=== PATIENT | female | born 1960 | race Caucasian/White ===

== ENCOUNTER → 2016-11-28 | Outpatient (REF) | payer OTHER | LOC: M LAB REF 12:08 | PROVIDERS: ATTEND Nurse Practitioner Adult Health | DX: R19.09 Other intra-abdominal and pelvic swelling, mass and lump (principal); R93.2 Abnormal findings on diagnostic imaging of liver and biliary tract ==

== ENCOUNTER → 2016-12-06 | Outpatient (CLI) | payer OTHER ==
--- NOTE | 2016-12-06 15:04 | REP ---
MRCP examination without contrast: History: Mass of the pancreas. Heartburn. Nonspecific abnormal radiologic findings. No comparison abdominal imaging studies. Technique: Axial and coronal T2 HASTE and TRUE FISP images are acquired. In addition, an MRCP exam is acquired and maximum intensity projection images are generated and displayed rotational. Coronal source images are viewed. MRCP findings: There is a 1.0 cm cyst in the left lobe of the liver on T2-weighted scans. No other focal liver lesion is seen. No biliary ductal dilation is observed within the liver. The gallbladder lumen is homogeneous on T2-weighted scans with no filling defect. The common bile duct is normal in caliber and course. It measures 5 mm in greatest diameter. The main pancreatic duct is mildly dilated measuring up to 4 mm. No mass is seen at the distal duct or elsewhere on MRCP images. There is no evidence of mass effect or tapering at the confluence of the common bile duct and pancreatic duct at the level of the ampulla. Exam is otherwise unremarkable. Impression: Mild diffuse dilation of the pancreatic duct. Otherwise normal ERCP. Small cyst in the left lobe of the liver. Signed by Macho Gauthier MD 12/06/2016 04:26 P
--- NOTE | 2016-12-06 15:07 | REP ---
MRI STUDY OF THE ABDOMEN WITHOUT AND WITH IV GADOLINIUM: HISTORY: Pancreatic mass. No comparison abdominal imaging. TECHNIQUE: Axial and coronal imaging planes are utilized. T1 and T2-weighted sequences include TRUE FISP, in- and [id number]-pcpyj, spin echo, turbo spin echo, and sequential post gadolinium enhanced 2D fat sat T1-weighted gradient echo sequences. The gadolinium enhancement dose is 15 mL of intravenous ProHance. MRI FINDINGS: There is a well circumscribed low T1, high T2 signal intensity rounded 10 mm lesion in the left lobe of the liver consistent with a cyst . There is a second slightly smaller cyst more anteriorly and peripherally in the left lobe. No other focal liver lesion is seen. No splenic abnormalities observed. No adrenal masses seen on either side. The gallbladder is unremarkable. There is a tiny cortical cyst at the lower pole of the right kidney measuring 7 mm. There is mild fullness of the intrarenal collecting system and renal pelvis on the right consistent with mild right-sided hydronephrosis. Hydroureter is not seen beyond the level of the ureteropelvic junction. Dynamically acquired post gadolinium enhanced images show normal homogeneous enhancement of the pancreas without evidence of pancreatic mass lesion. No evidence of liver lesion is seen. The kidneys enhance symmetrically. IMPRESSION: No pancreatic mass lesion seen. Mildly prominent main pancreatic duct as seen on MRCP exam. Mild right-sided hydronephrosis question right ureteropelvic junction obstruction. Two small left lobe hepatic cysts seen. Signed by Macho Gauthier MD 12/06/2016 04:26 P
== END ==
LOC: M RAD 12:21
PROVIDERS: ATTEND Internal Medicine Gastroenterology
DX: R19.09 Other intra-abdominal and pelvic swelling, mass and lump (principal); R93.2 Abnormal findings on diagnostic imaging of liver and biliary tract; R12 Heartburn; N13.30 Unspecified hydronephrosis; K76.89 Other specified diseases of liver

== ENCOUNTER → 2017-06-28 | Outpatient (REF) | payer OTHER ==
[2017-06-28 20:48] LABS: BACTERIA, URINE NONE SEEN; HYALINE CAST, URINE 0-1 /lpf (0-1); SQUAMOUS EPITHELIAL CELL URINE MOD AMOUNT /hpf (SMALL AMT)
[2017-06-28 20:49] LABS: MICROSCOPIC EXAM PERFORMED
== END ==
LOC: M LAB REF 17:08
PROVIDERS: ATTEND Nurse Practitioner Adult Health
DX: R31.9 Hematuria, unspecified (principal)

== ENCOUNTER → 2019-08-05 | Outpatient (REF) | payer OTHER | LOC: M LAB REF 19:58 | PROVIDERS: ATTEND Nurse Practitioner Family | DX: N39.0 Urinary tract infection, site not specified (principal) ==

== ENCOUNTER → 2021-07-07 | Outpatient (REF) | payer OTHER | LOC: M LAB REF 16:45 | PROVIDERS: ATTEND Nurse Practitioner Adult Health | DX: L65.9 Nonscarring hair loss, unspecified (principal) ==

== ENCOUNTER → 2021-08-11 | Outpatient (CLI) | payer OTHER ==
[~2021-08-11] MED LIST: CELE1CAP9 PO; LISI10TA22 PO; MYRB50TA PO; OMEP10CA78 PO
== END ==
LOC: M LABSMTC 09:39
PROVIDERS: ATTEND Anesthesiology
DX: Z01.812 Encounter for preprocedural laboratory examination (principal); Z20.822 Contact with and (suspected) exposure to COVID-19

== ENCOUNTER 2021-08-16 09:16 | Day surgery (SDC) | payer OTHER ==
[~2021-08-16] VITALS: Ht 160 cm; Wt 83.6 kg
[~2021-08-16 09:16] MED LIST changes: +CYCLOPENTOLATE 1% OPHTH SOLN 2 ML BTL OS SCH; +DUOVISC (0.50ML VISCOAT/0.85ML PROVISC) OPHTH KIT As Ordered ONE; +FLURBIPROFEN 0.03% OPHTH SOLN 2.5 ML OS SCH; +LIDOCAINE 1% MDV 20ML VIAL SQ PRN; +LIDOCAINE 1% SDV 5ML VIAL As Ordered ONE; +LR 1,000 ML IV SCH; +MIDAZOLAM INJ 2MG/2ML VIAL (J2250 PER 1MG) As Ordered ONE; +PHENYLEPHRINE 2.5% OPHTH SOL 2ML OS SCH; +TETRACAINE 0.5% OPHTH SOLN 4ML OS SCH; +fentaNYL 100 MCG/2 ML INJECTION (J3010) As Ordered ONE
[2021-08-16 14:15] VITALS: BP 157/82
== END 2021-08-16 14:15 | disposition home or self-care (01) ==
LOC: M SDC 09:16
PROVIDERS: ATTEND Ophthalmology
DX: H25.12 Age-related nuclear cataract, left eye (principal); I10 Essential (primary) hypertension; K21.9 Gastro-esophageal reflux disease without esophagitis; Z79.899 Other long term (current) drug therapy
CPT/HCPCS: 66984; 92015; J2250; J3010

== ENCOUNTER → 2021-09-08 | Outpatient (CLI) | payer OTHER ==
[~2021-09-08] MED LIST changes: -CYCLOPENTOLATE 1% OPHTH SOLN 2 ML BTL OS SCH; -DUOVISC (0.50ML VISCOAT/0.85ML PROVISC) OPHTH KIT As Ordered ONE; -FLURBIPROFEN 0.03% OPHTH SOLN 2.5 ML OS SCH; -LIDOCAINE 1% MDV 20ML VIAL SQ PRN; -LIDOCAINE 1% SDV 5ML VIAL As Ordered ONE; -LR 1,000 ML IV SCH; -MIDAZOLAM INJ 2MG/2ML VIAL (J2250 PER 1MG) As Ordered ONE; -PHENYLEPHRINE 2.5% OPHTH SOL 2ML OS SCH; -TETRACAINE 0.5% OPHTH SOLN 4ML OS SCH; +ULTR5TAB PO; -fentaNYL 100 MCG/2 ML INJECTION (J3010) As Ordered ONE
== END ==
LOC: M LABSMTC 11:19
PROVIDERS: ATTEND Anesthesiology
DX: Z01.812 Encounter for preprocedural laboratory examination (principal); Z20.822 Contact with and (suspected) exposure to COVID-19

== ENCOUNTER 2021-09-13 07:00 | Day surgery (SDC) | payer OTHER ==
[~2021-09-13] VITALS: Ht 160 cm; Wt 84.7 kg
[~2021-09-13 07:00] MED LIST changes: +CYCLOPENTOLATE 1% OPHTH SOLN 2 ML BTL OD SCH; +DUOVISC (0.50ML VISCOAT/0.85ML PROVISC) OPHTH KIT As Ordered ONE; +FLURBIPROFEN 0.03% OPHTH SOLN 2.5 ML OD SCH; +LIDOCAINE 1% SDV 5ML VIAL As Ordered ONE; +LR 1,000 ML IV SCH; +PHENYLEPHRINE 2.5% OPHTH SOL 2ML OD SCH; +TETRACAINE 0.5% OPHTH SOLN 4ML OD SCH
--- OUTSIDE RECORDS SUMMARY | 2021-09-13 07:05 | CCD | Continuity of Care Document ---
Author Author Nurse Enid Ortiz Organization Unknown Address [address] [facility] [address] [place] [address] Phone [phone] Care Team Providers Care Fusing Line Inspector Name Role Phone Estrellita Atkins AUTM [phone] Juliano Burk AUTM [phone] Problems Description No Information Available Social History Type Date Description Comments Sex Unknown ETOH Use Drinks Alcoholic Beverages Occas ionally Tobacco Use Start: Unknown Patient has never smoked Allergies and adverse reactions Active Allergies Criticality Reaction | Severity Comments Date Sulfa Unable to assess criticality 02/06/2012 Medications Active Medications SIG Qnty Indications Ordering Provide r Date Lisinopril 20mg Tablets 1 by mouth every day 90tabs Ted Arnold DO 08/02/20 [address] 1 by mouth every other day 30caps CHERRIE Isaac 04/22/2019 Myrbetriq 50mg Tablets ER 24HR 1 by mouth every day Unknown Acetaminophen ER 650mg Tablets ER 1 by mouth every 8 hours as needed for pain Unknown Fluticasone Propionate 50mcg/Act Suspension 2 sprays each nostril daily Unknown Medications Administered in Office Medication SIG Qnty Indications Ordering Provider Date Immunization Adminstration,1 Vaccine/Tox oid Injection Terry Arnold MD 2020 Immunization Adminstration,1 Vaccine/Tox oid Injection OJ Obrien JR 05/2021 Immunization Adminstration,1 Vaccine/Tox oid Injection CHERRIE Isaac 019 Depo-Medrol Injection Injection CHERRIE Isaac 07/03/2012 Administration Of Flu Vaccine Inj ection Estrellita Jose Milly, CHERRIE 10/05/2005 Immunizations CPT Code Status Date Vaccine Lot # [id number] Given 08/23/2021 Influenza Vaccin e Quadrivalent Preser/Antibiotic Free Im Use [id number] 72501 Given 11/26/2020 Adacel- Tetanus Diphtheria P ertussis [id number] 76775 Given 11/25/2019 Influenza Vaccin e Quadrivalent Preser/Antibiotic Free Im Use 87738 Given 11/21/2018 Influenza Virus Vaccine, Quadrivalent ([id number]), Derived From Cell [id number] Q2037 Given 08/25/2014 Fluvirin Virus Vaccine 90217 21 24659 Given 06/26/2013 PPD [id number] 42657 Given 02/06/2012 Zoster Vaccine 82399 Given 08/28/2009 Influenza Virus Vaccine 39752 Given 10/05/2005 Influenza Virus Vaccine Vital Signs Date Vital Result Comment 08/11/2021 1:10pm Heart Rate 88 /min Height 63 inches 5'3" Weight 185.00 lb O2 % BldC Oximetry 96 % BMI (Body Mass Index) 32.8 kg/m2 08/02/2021 9:13am BP Systolic 142 mmHg BP Diastolic 90 mmHg Heart Rate 72 /min Height 63 inches 5'3" Weight 184.00 lb BMI (Body Mass Index) 32.6 kg/m2 Results Test Acquired Date Facility Test Result H/L Range Note Laboratory test finding 08/11/2021 [facility] SEE COMMENTS 1 Enhanced PDF Report [id number] SEE IMAGE Basic Metabolic Panel 08/11/2021 [facility], colette Catal[employer] Operator Gasoline: [place] [address] [phone] Glucose 110 mg/dL High 74 - 99 2 BUN 15 mg/dL 7 - 18 Creatinine 1.0 mg/dL 0.6 - 1.3 Sodium 143 mEq/L 136 - 145 Potassium 4.1 mEq/L 3.5 - 5.1 Chloride 108 mEq/L High 98 - 107 Carbon Dioxide 31 mEq/L 21 - 32 Calcium 9.2 mg/dL 8.5 - 10.1 GFR 57 mL/min Low >60 GFR >= 60 mL/min >60 3 Laboratory test finding 07/07/2021 [facility] [address] [place], [place] [address] [phone] Free T3 3.4 pg/mL Normal 2.2-4.0 Complete Blood Count 07/07/2021 [place] [facility] [employer] [facility] Catal[employer] Operator Gasoline: [place] [address] [phone] WBC 5.2 x10*3/UL 4.1 - 10.9 RBC 4.62 x10*6/UL 4.20 - 6.30 Hemoglobin 14.4 g/dL 12.0 - 18.0 Hematocrit 42.5 % 37.0 - 51.0 MCV 91.9 fL 80.0 - 97.0 MCH 31.2 pg 26.0 - 32.0 MCHC 33.9 g/dL 31.0 - 38.0 RDW 12.8 % 11.6 - 13.7 PLT 203 x10*3/UL 140 - 440 MPV 8.2 FL 7.8 - 11.0 Lymph % 33.7 % 10.0 - 58.5 Mid % 7.2 % 1.7 - 9.3 Neut % 59.1 % 37.0 - 92.0 Lymph # 1.7 x10*3/UL 0.6 - 4.1 Mid # 0.4 x10*3/UL 0.1 - 0.6 Neut # 3.1 x10*3/UL 2.0 - 7.8 Comprehensive Chem Profile 07/07/2021 [place] colette Garsia Catal[employer] Operator Gasoline: [place] [address] [phone] Glucose 91 mg/dL 74 - 99 4 BUN 17 mg/dL 7 - 18 Creatinine 0.9 mg/dL 0.6 - 1.3 Sodium 139 mEq/L 136 - 145 Potassium 4.3 mEq/L 3.5 - 5.1 Chloride 104 mEq/L 98 - 107 Carbon Dioxide 31 mEq/L 21 - 32 Calcium 9.2 mg/dL 8.5 - 10.1 Alk. Phosphatase 64 mg/dL 46 - 116 Total Bilirubin 0.3 mg/dL 0.2 - 1.0 Ast (Sgot) 24 U/L 15 - 37 Alt (SGPT) 36 U/L 12 - 78 Albumin 4.1 g/dL 3.4 - 5.0 Total Protein 7.3 g/dL 6.4 - 8.2 A/G Ratio 1.28 CALC 1.00 - 1.90 GFR >= 60 mL/min >60 GFR >= 60 mL/min >60 5 Lipid Profile 07/07/2021 [facility] Catal[employer] Operator Gasoline: [place] [address] [phone] Cholesterol 197 mg/dL 131 - 200 Triglycerides 55 mg/dL 30 - 150 HDL Cholesterol 65 mg/dL High 35 - 60 LDL (Calculated) 121 CALC 50 - 159 Laboratory test finding 07/07/2021 [place] [facility], Catal[employer] Operator Gasoline: Dr Terry Arnold [place] [id number] [phone] Thyroid Stimulating Hormone 1.58 uIU/mL 0.3 6 - 3.74 Laboratory test finding 07/07/2021 [place] [facility], Catalyst Operator Gasoline: Dr Terry Arnold [place] [id number] [phone] T4 Free 0.84 ng/dL 0.76 - 1.46 Laboratory test finding 03/12/2021 [place] [facility], Catalyst Operator Gasoline: Dr Terry Arnold [place], [place] [address] [phone] Thyroid Stimulating Hormone 1.26 uIU/mL 0.3 6 - 3.74 1 RESULTS DIAGNOSIS DIAGNOSIS: LEFT ANTERIOR LEG- PRURIGO NODULARIS RESULTS SIGNATURE Carlito Le MD Electronic Signature: 17 AUG 2021 01:19 PM CLINICAL INFORMATION CLINICAL INFORMATION DERMATOFIBROMA SPECIMEN DATA GROSS DESCRIPTION Received in 10% buffered formalin is an excision of skin measuring 24G5K8am. There is a central lesion of a papule measuring 6X6mm in width. The specimen is inked, cut into 9 pieces and entirely submitted in 5 colby sette(s). MICROSCOPIC DESCRIPTION There is compact hyperkeratosis, irregular psoriasiform epidermal hyperplasia and a thickened papillary dermis composed of coarse collagen. A mixed inflammatory cell infiltrate composed of lymphocytes and histiocytes are present around blood vessels in the superficial dermis. CPT Codes 76264 The CPT codes provided are for information purposes only, and are based on AMA guidelines without regard to specific payor requirements. END OF REPORT FINAL REPORT-ACC FINAL [facility],[address] [place] [address],[address],[place] [address]. [phone]. [phone]. Household Personal Assistant: Kory Sarmiento MD [facility] [id number], [place] [id number], [place] [id number] 2 100-125 mg/dL PRE-DIABET ES/FASTING >126 mg/dL DIABETES/FASTING 3 CHRONIC KIDNEY DISEASE STAGI NG PER NKF STAGE I & II GFR >= 60 NORMAL TO MILDLY DECREASED STAGE III GFR 30-59 MODERATELY DECREASED STAGE IV GFR 15-29 SEVERELY DECREASED STAGE V GFR <15 VERY LITTLE GFR LEFT ESRD GFR <15 ON PLANNING ADVISOR 4 100-125 mg/dL PRE-DIABET ES/FASTING >126 mg/dL DIABETES/FASTING 5 CHRONIC KIDNEY DISEASE STAGI NG PER NKF STAGE I & II GFR >= 60 NORMAL TO MILDLY DECREASED STAGE III GFR 30-59 MODERATELY DECREASED STAGE IV GFR 15-29 SEVERELY DECREASED STAGE V GFR <15 VERY LITTLE GFR LEFT ESRD GFR <15 ON PLANNING ADVISOR Procedures Date Code Description Status 08/11/2021 00585 EX Benign Les (3.1cm - 4.0cm) Tr unk, Arms, Legs Completed 08/11/2021 66376 Office/Outpatient Established SF MDM 10-19 Min Completed 07/07/2021 54299 Office/Outpatient Established Mo d MDM 30-39 Min Completed 03/12/2021 26881 Office/Outpatient Established Lo w MDM 20-29 Min Completed 11/10/2020 [id number] Mammogram Completed 11/06/2019 [id number] Mammogram Completed 11/05/2018 [id number] Mammogram Completed 11/02/2017 [id number] Mammogram Completed 09/10/2016 [id number] Mammogram Completed 09/07/2015 [id number] Mammogram Completed 09/05/2014 [id number] Mammogram Completed 08/14/2013 [id number] Colonoscopy Completed 07/25/2013 [id number] Mammogram Completed 07/24/2012 [id number] Mammogram Completed 07/20/2012 [id number] Mammogram Completed 07/20/2011 [id number] Mammogram Completed 07/19/2010 [id number] Mammogram Completed 06/02/2003 [id number] Bone Mineral Density Test Comple 500Shops Description No Information Available Encounters Type Date Location Provider Dx Diagnosis Office Visit 08/11/2021 1[facility]p [facility] D48.5 Neoplasm of uncertain behavior of skin I10 Essential (primary) hyperten kenton Office Visit 07/07/2021 9:20a [facility] 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 I10 Essential (primary) hyperten kenton K21.9 Gastro-esophageal reflux dis ease without esophagitis R32 Unspecified urinary incontin ence E78.5 Hyperlipidemia, unspecified Office Visit 03/12/2021 1:00p [facility], CHERRIE 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 I10 Essential (primary) hyperten kenton K21.9 Gastro-esophageal reflux dis ease without esophagitis Assessments Date Code Description Provider 08/23/2021 Z23 Encounter for immunization Colli alicja Arnold MD 08/23/2021 Z23 Encounter for immunization Nurse Schedule 08/23/2021 Z48.02 Encounter for removal of sutures Nurse Schedule 08/11/2021 D48.5 Neoplasm of uncertain behavior o f skin Estrellita Atkins, CHERRIE 08/11/2021 I10 Essential (primary) hypertension Estrellita Atkins, ANP 08/02/2021 Z01.810 Encounter for preprocedural card iovascular examination Ted Arnold, DO 08/02/2021 H26.9 Unspecified cataract Ted Arnold, DO 08/02/2021 I10 Essential (primary) hypertension Ted Arnold, DO 07/07/2021 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 Estrellita patel, ANP 07/07/2021 I10 Essential (primary) hypertension Estrellita Atkins, ANP 07/07/2021 K21.9 Gastro-esophageal reflux disease without esophagitis Estrellita Atkins, ANP 07/07/2021 R32 Unspecified urinary incontinence Estrellita Atkins, ANP 07/07/2021 E78.5 Hyperlipidemia, unspecified Marissac robbie Atkins, ANP 03/12/2021 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 08/11/2021 - CHERRIE Isaac* D48.5 Neoplasm of uncertain behavior of skin * I10 Essential (primary) hypertension Functional Status Description No Information Available Mental Status Description No Information Available Referrals Refer to Reason for Referral Status Appt Date [facility] CONSULT FOR MEDICAL NUTRITION THER APY DX: OBESITY Patient Notified 04/05/2021 [address] [place] [address] [phone]
--- OUTSIDE RECORDS SUMMARY | 2021-09-13 07:05 | CCD | Continuity of Care Document ---
Author Author Enid Atkins Organization Unknown Address [address] [facility] [address] [place] [address] Phone [phone] Care Team Providers Care Judo Instructor Name Role Phone Estrellita Atkins AUTM [phone] Juliano Burk AUTM [phone] Problems Description No Information Available Social History Type Date Description Comments Sex Unknown ETOH Use Drinks Alcoholic Beverages Occas ionally Tobacco Use Start: Unknown Patient has never smoked Allergies, Adverse Reactions, Alerts Active Allergies Criticality Reaction | Severity Comments [...] Provider Date Immunization Adminstration,1 Vaccine/Tox oid Injection OJ Obrien JR 05/2021 Immunization Adminstration,1 Vaccine/Tox oid Injection CHERRIE Isaac 019 Depo-Medrol Injection Injection CHERRIE Isaac 07/03/2012 Administration Of Flu Vaccine Inj ection CHERRIE Isaac 10/05/2005 Immunizations CPT Code Status Date Vaccine Lot # [id number] Given 11/26/2020 Adacel- Tetanus Diphtheria P ertussis [id number] 17091 Given 11/25/2019 Influenza Vaccin e Quadrivalent Preser/Antibiotic Free Im Use 28495 Given 11/21/2018 Influenza Virus Vaccine, Quadrivalent ([id number]), Derived From Cell [id number] Q2037 Given 08/25/2014 Fluvirin Virus Vaccine 23475 21 48934 Given 06/26/2013 PPD [id number] 58539 Given 02/06/2012 Zoster Vaccine 23331 Given 08/28/2009 Influenza Virus Vaccine 97255 Given 10/05/2005 Influenza Virus Vaccine Vital Signs [...] Range Note Laboratory test finding 08/11/2021 [facility] <pending> Basic Metabolic Panel 08/11/2021 [facility] colette cheng Cook [place]: [place] [address] [phone] Glucose 110 mg/dL High 74 - 99 1 BUN 15 mg/dL 7 - 18 Creatinine 1.0 mg/dL 0.6 - 1.3 Sodium 143 mEq/L 136 - 145 Potassium 4.1 mEq/L 3.5 - 5.1 Chloride 108 mEq/L High 98 - 107 Carbon Dioxide 31 mEq/L 21 - 32 Calcium 9.2 mg/dL 8.5 - 10.1 GFR 57 mL/min Low >60 GFR >= 60 mL/min >60 2 Laboratory test finding 07/07/2021 [facility] [address] [place] [address] [phone] Free T3 3.4 pg/mL Normal 2.2-4.0 Complete Blood Count 07/07/2021 [place] [facility] [employer] [facility] Cook [place]onnaise: [place] [address] [phone] WBC 5.2 x10*3/UL 4.1 - 10.9 RBC [...] 2.0 - 7.8 Comprehensive Chem Profile 07/07/2021 [place] colette Garsia Cook [place]onnaise: [place] [address] [phone] Glucose 91 mg/dL 74 - 99 3 BUN 17 mg/dL 7 - 18 Creatinine [...] mL/min >60 GFR >= 60 mL/min >60 4 Lipid Profile 07/07/2021 [facility] Cook [place]: Dr Terry Arnold [place] [address] [phone] Cholesterol 197 mg/dL 131 - 200 Triglycerides 55 mg/dL 30 - 150 HDL Cholesterol 65 mg/dL High 35 - 60 LDL (Calculated) 121 CALC 50 - 159 Laboratory test finding 07/07/2021 [place] [employer] is, Cook [place]: Dr Terry Arnold [place], [facility] [phone] Thyroid Stimulating Hormone 1.58 uIU/mL 0.3 6 - 3.74 Laboratory test finding 07/07/2021 [place] [employer] Mixer is, Cook [place]: Dr Terry Arnold [place] [id number] [phone] T4 Free 0.84 ng/dL 0.76 - 1.46 Laboratory test finding 03/12/2021 [place] Compound Mixer is, Cook [place]: Dr Terry Arnold [place] [address] [phone] Thyroid Stimulating Hormone 1.26 uIU/mL 0.3 6 - 3.74 Liver Function Profile 02/17/2021 [facility] Cook [place]: Dr Terry Arnold [place] [id number] [phone] Alk. Phosphatase 65 mg/dL 46 - 116 Total Bilirubin 0.4 mg/dL 0.2 - 1.0 Ast (Sgot) 25 U/L 15 - 37 Alt (SGPT) 39 U/L 12 - 78 Albumin 4.4 g/dL 3.4 - 5.0 Total Protein 7.8 g/dL 6.4 - 8.2 Direct Bilirubin 0.1 mg/dL 0.0 - 0.2 A/G Ratio 1.29 CALC 1.00 - 1.90 1 100-125 mg/dL PRE-DIABET ES/FASTING >126 mg/dL DIABETES/FASTING 2 CHRONIC KIDNEY DISEASE STAGI NG PER NKF STAGE I & II GFR >= 60 NORMAL TO MILDLY DECREASED STAGE III GFR 30-59 MODERATELY DECREASED STAGE IV GFR 15-29 SEVERELY DECREASED STAGE V GFR <15 VERY LITTLE GFR LEFT ESRD GFR <15 ON RECREATION ASSISTANT 3 100-125 mg/dL PRE-DIABET ES/FASTING >126 mg/dL DIABETES/FASTING 4 CHRONIC KIDNEY DISEASE STAGI NG PER NKF STAGE I & II GFR >= 60 NORMAL TO MILDLY DECREASED STAGE III GFR 30-59 MODERATELY DECREASED STAGE IV GFR 15-29 SEVERELY DECREASED STAGE V GFR <15 VERY LITTLE GFR LEFT ESRD GFR <15 ON RECREATION ASSISTANT Procedures Date Code Description Status 08/11/2021 15532 EX Benign Les (3.1cm - 4.0cm) Tr unk, Arms, Legs Completed 08/11/2021 91829 Office/Outpatient Established SF MDM 10-19 Min Completed 07/07/2021 28731 Office/Outpatient Established Mo d MDM 30-39 Min Completed 03/12/2021 71047 Office/Outpatient Established Lo w MDM 20-29 Min Completed 11/10/2020 [id number] Mammogram Completed 11/06/2019 [id number] Mammogram Completed 11/05/2018 [id number] Mammogram Completed 11/02/2017 [id number] Mammogram Completed 09/10/2016 [id number] Mammogram Completed 09/07/2015 [id number] Mammogram Completed 09/05/2014 [id number] Mammogram Completed 08/14/2013 [id number] Colonoscopy Completed 07/25/2013 [id number] Mammogram Completed 07/24/2012 [id number] Mammogram Completed 07/20/2012 [id number] Mammogram Completed 07/20/2011 [id number] Mammogram Completed 07/19/2010 [id number] Mammogram Completed 06/02/2003 [id number] Bone Mineral Density Test Comple [employer] Description No Information Available Encounters Type Date Location Provider Dx Diagnosis Office Visit 08/11/2021 1:20p [facility] PThanh Atkins, ANP D48.5 Neoplasm of uncertain behavior of skin I10 Essential (primary) hyperten kenton Office Visit 07/07/2021 9:[facility], AN[facility] 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 I10 Essential (primary) hyperten kenton K21.9 Gastro-esophageal reflux dis ease without esophagitis R32 Unspecified urinary incontin ence E78.5 Hyperlipidemia, unspecified Office Visit 03/12/2021 1:00p [place] [facility] hutson, ANP 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 I10 Essential (primary) hyperten kenton K21.9 Gastro-esophageal reflux dis ease without esophagitis Assessments Date Code Description Provider 08/11/2021 D48.5 Neoplasm of uncertain behavior o f skin Estrellita Atkins, ANP 08/11/2021 I10 Essential (primary) hypertension Estrellita Atkins, [...] Estrellita Atkins, ANP 07/07/2021 E78.5 Hyperlipidemia, unspecified Jonny Atkins, ANP 03/12/2021 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 Estrellita patel, ANP 03/12/2021 I10 Essential (primary) hypertension Estrellita Atkins, ANP 03/12/2021 K21.9 Gastro-esophageal reflux disease without esophagitis Estrellita Atkins, ANP 02/17/2021 K76.0 Fatty (change of) liver, not els ewhere classified Estrellita Atkins, CHERRIE 02/17/2021 K76.0 Fatty (change of) liver, not els ewhere classified Lab Schedule Plan of Treatment Future Appointment(s):* 08/23/2021 1:30 pm - Nurse Schedule at [facility] * 01/11/2022 10:40 am - CHERRIE Isaac at [facility] 08/11/2021 - CHERRIE Isaac* D48.5 Neoplasm of uncertain behavior of skin * I10 Essential (primary) hypertension Functional Status Description No Information Available Mental Status Description No Information Available Referrals Refer to Reason for Referral Status Appt Date [facility] CONSULT FOR MEDICAL NUTRITION THER APY DX: OBESITY Patient Notified 04/05/[address] [place] [address] [phone]
--- OUTSIDE RECORDS SUMMARY | 2021-09-13 07:05 | CCD | Continuity of Care Document ---
Author Author Enid Atkins Organization Unknown Address [address] [facility] [address] [place] [address] Phone [phone] Care Team Providers Care Joinery Machinist Name Role Phone Estrellita Atkins AUTM [phone] Juliano Burk AUTM [phone] Problems Description No Information Available Social History [...] CPT Code Status Date Vaccine Lot # [id number] Given 11/26/2020 Adacel- Tetanus Diphtheria P ertussis [id number] 82153 Given 11/25/2019 Influenza Vaccin e Quadrivalent Preser/Antib[place] Use [address] Given 11/21/2018 Influenza Virus Vaccine, Quadrivalent ([id number]), Derived From Cell [id number] Q2037 Given 08/25/2014 Fluvirin Virus Vaccine 47346 21 88586 Given 06/26/2013 PPD [id number] 54928 Given 02/06/2012 Zoster Vaccine 87949 Given 08/28/2009 Influenza Virus Vaccine 01797 Given 10/05/2005 Influenza Virus Vaccine Vital Signs [...] DermPath SEE COMMENTS 1 Enhanced PDF Report [id number] SEE IMAGE Basic Metabolic Panel 08/11/2021 [facility] colette cheng Parasitology Teacher: [place] [address] [phone] Glucose 110 mg/dL High 74 - 99 [...] mL/min >60 3 Laboratory test finding 07/07/2021 [facility] [address] [place] [address] [phone] Free T3 3.4 pg/mL Normal 2.2-4.0 Complete Blood Count 07/07/2021 [facility] [employer] [facility] Parasitology Teacher: [place] [address] [phone] WBC 5.2 x10*3/UL 4.1 - 10.9 RBC [...] 2.0 - 7.8 Comprehensive Chem Profile 07/07/2021 [facility] colette hodgson Parasitology Teacher: [place] [address] [phone] Glucose 91 mg/dL 74 - 99 4 [...] 60 mL/min >60 5 Lipid Profile [facility]/07[facility]2021 [facility] Parasitology Teacher: [place] [address] [phone] Cholesterol 197 mg/dL 131 - 200 Triglycerides 55 mg/dL 30 - 150 HDL Cholesterol 65 mg/dL High 35 - 60 LDL (Calculated) 121 CALC 50 - 159 Laboratory test finding 07/07/2021 [facility], Parasitology Teacher: Dr Terry Arnold [place] [id number] [phone] Thyroid Stimulating Hormone 1.58 uIU/mL 0.3 6 - 3.74 Laboratory test finding 07/07/2021 [facility], Parasitology Teacher: [place] [address] [phone] T4 Free 0.84 ng/dL 0.76 - 1.46 Laboratory test finding 03/12/2021 [facility], Parasitology Teacher: [place] [address] [phone] Thyroid Stimulating Hormone 1.26 uIU/mL 0.3 6 - 3.74 Liver Function Profile 02/17/2021 [facility], Parasitology Teacher: [place] [address] [phone] Alk. Phosphatase 65 mg/dL 46 - 116 Total Bilirubin 0.4 mg/dL 0.2 - 1.0 Ast (Sgot) 25 U/L 15 - 37 Alt (SGPT) 39 U/L 12 - 78 Albumin 4.4 g/dL 3.4 - 5.0 Total Protein 7.8 g/dL 6.4 - 8.2 Direct Bilirubin 0.1 mg/dL 0.0 - 0.2 A/G Ratio 1.29 CALC 1.00 - 1.90 1 RESULTS DIAGNOSIS DIAGNOSIS: LEFT ANTERIOR LEG- PRURIGO NODULARIS RESULTS SIGNATURE Carlito Le MD Electronic Signature: 17 AUG 2021 01:19 PM CLINICAL INFORMATION CLINICAL INFORMATION DERMATOFIBROMA SPECIMEN DATA GROSS DESCRIPTION Received in 10% buffered formalin is an excision of skin measuring [id number]. There is a central lesion of a [...] vessels in the superficial dermis. CPT Codes 43384 The CPT codes provided are for information purposes only, and are based on AMA guidelines without regard to specific payor requirements. END OF REPORT FINAL REPORT-[facility] FINAL [facility],[address] [place] [address],[address],[place] [address]. [phone]. [phone]. Printing Roller Handler: Kory Sarmiento MD [facility] [id number], [place] [id number], [place] [id number] 2 100-125 mg/dL PRE-DIABET ES/FASTING >126 mg/dL DIABETES/FASTING 3 CHRONIC KIDNEY DISEASE STAGI NG PER NKF STAGE I & II GFR >= 60 NORMAL TO MILDLY DECREASED STAGE III GFR 30-59 MODERATELY DECREASED STAGE IV GFR 15-29 SEVERELY DECREASED STAGE V GFR <15 VERY LITTLE GFR LEFT ESRD GFR <15 ON SYSTEM ADMINISTRATION MANAGER 4 100-125 mg/dL PRE-DIABET ES/FASTING >126 mg/dL DIABETES/FASTING 5 CHRONIC KIDNEY DISEASE STAGI NG PER NKF STAGE I & II GFR >= 60 NORMAL TO MILDLY DECREASED STAGE III GFR 30-59 MODERATELY DECREASED STAGE IV GFR 15-29 SEVERELY DECREASED STAGE V GFR <15 VERY LITTLE GFR LEFT ESRD GFR <15 ON SYSTEM ADMINISTRATION MANAGER Procedures Date Code Description Status 08/11/2021 10979 EX Benign Les (3.1cm - 4.0cm) Tr unk, Arms, Legs Completed 08/11/2021 51068 Office/Outpatient Established SF MDM 10-19 Min Completed 07/07/2021 80056 Office/Outpatient Established Mo d MDM 30-39 Min Completed 03/12/2021 54496 Office/Outpatient Established Lo w MDM 20-29 Min Completed 11/10/2020 [id number] Mammogram Completed 11/06/2019 [id number] Mammogram Completed 11/05/2018 [id number] Mammogram Completed 11/02/2017 [id number] Mammogram Completed 09/10/2016 [id number] Mammogram Completed 09/07/2015 [id number] Mammogram Completed 09/05/2014 [id number] Mammogram Completed 08/14/2013 [id number] Colonoscopy Completed 07/25/2013 [id number] Mammogram Completed 07/24/2012 [id number] Mammogram Completed 07/20/2012 [id number] Mammogram Completed 07/20/2011 [id number] Mammogram Completed 07/19/2010 [id number] Mammogram Completed 06/02/2003 [id number] Bone Mineral Density Test Comple Infused Medical Technology Description No Information Available Encounters Type Date Location Provider Dx Diagnosis Office Visit 08/11/2021 1:20p [facility], PIsaiCIsai Atkins, CHERRIE D48.5 Neoplasm of uncertain behavior of skin I10 Essential (primary) hyperten kenton Office Visit 07/07/2021 9:20a [facility], PThanh Atkins, ANP 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 I10 Essential (primary) hyperten kenton K21.9 Gastro-esophageal reflux dis ease without esophagitis R32 Unspecified urinary incontin ence E78.5 Hyperlipidemia, unspecified Office Visit 03/12/2021 1:00p [facility], PIsaiCIsai Atkins, ANP 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 I10 Essential (primary) hyperten kenton K21.9 Gastro-esophageal reflux dis ease without esophagitis Assessments Date Code Description Provider 08/11/2021 D48.5 Neoplasm of uncertain behavior o f skin Estrellita Atkins, CHERRIE 08/11/2021 I10 Essential (primary) hypertension Estrellita Atkins, CHERRIE 08/02/2021 Z01.810 Encounter for preprocedural card iovascular examination Ted Arnold, DO 08/02/2021 H26.9 Unspecified cataract Ted Arnold, DO 08/02/2021 I10 Essential (primary) hypertension Ted Arnold, DO 07/07/2021 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 Estrellita patel, CHERRIE 07/07/2021 I10 Essential (primary) hypertension Estrellita Atkins, CHERRIE 07/07/2021 K21.9 Gastro-esophageal reflux disease without esophagitis Estrellita Atkins, CHERRIE 07/07/2021 R32 Unspecified urinary incontinence Estrellita Atkins, ANP 07/07/2021 E78.5 Hyperlipidemia, unspecified Marissac y Damon Atkins, ANP 03/12/2021 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 Estrellita patel, ANP 03/12/2021 I10 Essential (primary) hypertension Estrellita Atkins, CHERRIE 03/12/2021 K21.9 Gastro-esophageal reflux disease without esophagitis Estrellita Atkins, ANP 02/17/2021 K76.0 Fatty (change of) liver, not els ewhere classified Estrellita Atkins, ANP 02/17/2021 K76.0 Fatty (change of) liver, not els ewdamari classified Lab Schedule Plan of Treatment Future Appointment(s):* 08/23/2021 1:30 pm - Nurse Schedule at [facility] * 01/11/2022 10:40 am - CHERRIE Isaac at [facility] 08/11/2021 - CHERRIE Isaac* D48.5 Neoplasm of uncertain behavior of skin * I10 Essential (primary) hypertension Functional Status Description No Information Available Mental Status Description No Information Available Referrals Refer to Dr Reason for Referral Status Appt Date [facility] CONSULT FOR MEDICAL NUTRITION THER APY DX: OBESITY Patient Notified 04/05/2021 [address] [place] [address] [phone]
--- OUTSIDE RECORDS SUMMARY | 2021-09-13 07:05 | CCD | Continuity of Care Document ---
Author Author Nurse Enid Ortiz Organization Unknown Address [address] [facility] [address] [place] [address] Phone [phone] Care Team Providers Care Assembly Line Machine Operator Name Role Phone Estrellita Atkins AUTM [phone] Juliano Burk AUTM [phone] Problems Description No Information Available Social History [...] CPT Code Status Date Vaccine Lot # [id number] Given 11/26/2020 Adacel- Tetanus Diphtheria P ertussis [id number] 81244 Given 11/25/2019 Influenza Vaccin e Quadrivalent Preser/Antibiotic [place] Im Use 83985 Given 11/21/2018 Influenza Virus Vaccine, Quadrivalent (Cciiv4), Derived From Cell 334369 Q2037 Given 08/25/2014 Fluvirin Virus Vaccine 25579 21 91826 Given 06/26/2013 PPD [id number] 30739 Given 02/06/2012 Zoster Vaccine 74434 Given 08/28/2009 Influenza Virus Vaccine 47551 Given 10/05/2005 Influenza Virus Vaccine Vital Signs [...] DermPath SEE COMMENTS 1 Enhanced PDF Report [id number] SEE IMAGE Basic Metabolic Panel 08/11/2021 [facility], colette Hat And Cap Drying Room Attendant: Dr Terry Arnold [place], [place] [id number] [phone] Glucose 110 mg/dL High 74 - 99 [...] mL/min >60 3 Laboratory test finding 07/07/2021 [facility] [address] [place] [address] [phone] Free T3 3.4 pg/mL Normal 2.2-4.0 Complete Blood Count 07/07/2021 [facility], pc Hat And Cap Drying Room Attendant: [place] [address] [phone] WBC 5.2 x10*3/UL 4.1 - 10.9 RBC [...] 2.0 - 7.8 Comprehensive Chem Profile 07/07/2021 [facility], colette Hat And Cap Drying Room Attendant: [place] [address] [phone] Glucose 91 mg/dL 74 - 99 4 [...] 60 mL/min >60 5 Lipid Profile 07/07/2021 [facility] Hat And Cap Drying Room Attendant: [place] [address] [phone] Cholesterol 197 mg/dL 131 - 200 Triglycerides 55 mg/dL 30 - 150 HDL Cholesterol 65 mg/dL High 35 - 60 LDL (Calculated) 121 CALC 50 - 159 Laboratory test finding 07/07/2021 [facility] Grounding Engineer isskylar, Hat And Cap Drying Room Attendant: [place] [address] [phone] Thyroid Stimulating Hormone 1.58 uIU/mL 0.3 6 - 3.74 Laboratory test finding 07/07/2021 [facility] is Hat And Cap Drying Room Attendant: [place] [address] [phone] T4 Free 0.84 ng/dL 0.76 - 1.46 Laboratory test finding 03/12/2021 [facility], Hat And Cap Drying Room Attendant: [place] [address] [phone] Thyroid Stimulating Hormone 1.26 uIU/mL 0.3 6 - 3.74 1 RESULTS DIAGNOSIS DIAGNOSIS: LEFT ANTERIOR LEG- PRURIGO NODULARIS RESULTS SIGNATURE Carlito Le MD Electronic Signature: 17 AUG 2021 01:19 PM CLINICAL INFORMATION CLINICAL INFORMATION DERMATOFIBROMA SPECIMEN DATA GROSS DESCRIPTION Received in 10% buffered formalin is an excision of skin measuring [id number]. There is a central lesion of a [...] vessels in the superficial dermis. CPT Codes 20279 The CPT codes provided are for information purposes only, and are based on AMA guidelines without regard to specific payor requirements. END OF REPORT FINAL REPORT-[facility] FINAL [facility],[address] [place] [address],[address],[place] [id number]. [phone]. [phone]. Medical Equipment Repair Technician: Kory Sarmiento MD [facility] [id number], [place] [id number], [place] [id number] 2 100-125 mg/dL PRE-DIABET ES/FASTING >126 mg/dL DIABETES/FASTING 3 CHRONIC KIDNEY DISEASE STAGI NG PER NKF STAGE I & II GFR >= 60 NORMAL TO MILDLY DECREASED STAGE III GFR 30-59 MODERATELY DECREASED STAGE IV GFR 15-29 SEVERELY DECREASED STAGE V GFR <15 VERY LITTLE GFR LEFT ESRD GFR <15 ON HOTEL MANAGER 4 100-125 mg/dL PRE-DIABET ES/FASTING >126 mg/dL DIABETES/FASTING 5 CHRONIC KIDNEY DISEASE STAGI NG PER NKF STAGE I & II GFR >= 60 NORMAL TO MILDLY DECREASED STAGE III GFR 30-59 MODERATELY DECREASED STAGE IV GFR 15-29 SEVERELY DECREASED STAGE V GFR <15 VERY LITTLE GFR LEFT ESRD GFR <15 ON HOTEL MANAGER Procedures Date Code Description Status 08/11/2021 13722 EX Benign Les (3.1cm - 4.0cm) Tr unk, Arms, Legs Completed 08/11/2021 03177 Office/Outpatient Established SF MDM 10-19 Min Completed 07/07/2021 79459 Office/Outpatient Established Mo d MDM 30-39 Min Completed 03/12/2021 40342 Office/Outpatient Established Lo w MDM 20-29 Min Completed 11/10/2020 [id number] Mammogram Completed 11/06/2019 [id number] Mammogram Completed 11/05/2018 [id number] Mammogram Completed 11/02/2017 [id number] Mammogram Completed 09/10/2016 [id number] Mammogram Completed 09/07/2015 [id number] Mammogram Completed 09/05/2014 [id number] Mammogram Completed 08/14/2013 [id number] Colonoscopy Completed 07/25/2013 [id number] Mammogram Completed 07/24/2012 [id number] Mammogram Completed 07/20/2012 [id number] Mammogram Completed 07/20/2011 [id number] Mammogram Completed 07/19/2010 [id number] Mammogram Completed 06/02/2003 [id number] Bone Mineral Density Test Comple Settle Description No Information Available Encounters Type Date Location Provider Dx Diagnosis Office Visit 08/11/2021 1:20p [facility] Estrellita Atkins, ANP D48.5 Neoplasm of uncertain behavior of skin I10 Essential (primary) hyperten kenton Office Visit 07/07/2021 9:20a [facility] 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 08/11/2021 - Estrellita Atkins, ANP* D48.5 Neoplasm of uncertain behavior of skin * I10 Essential (primary) hypertension Functional Status Description No Information Available Mental Status Description No Information Available Referrals Refer to Reason for Referral Status Appt Date [facility] CONSULT FOR MEDICAL NUTRITION THER APY DX: OBESITY Patient Notified 04/05/[address] [place] [address] [phone]
--- OUTSIDE RECORDS SUMMARY | 2021-09-13 07:06 | CCD | Continuity of Care Document ---
Author Author Enid Atkins Organization Unknown Address [address] [facility] [address] [place] [address] Phone [phone] Care Team Providers Care Laborer Cheesemaking Name Role Phone Estrellita Atkins AUTM [phone] Juliano Burk AUTM [phone] Problems Description No Information Available Social History [...] CPT Code Status Date Vaccine Lot # [id number] Given 11/26/2020 Adacel- Tetanus Diphtheria P ertussis [id number] 08911 Given 11/25/2019 Influenza Vaccin e Quadrivalent Preser/[place]ib[place] Use 73076 Given 11/21/2018 Influenza Virus Vaccine, Quadrivalent (Cciiv4), Derived From Cell 114960 Q2037 Given 08/25/2014 Fluvirin Virus Vaccine 42714 21 90798 Given 06/26/2013 PPD [id number] 35861 Given 02/06/2012 Zoster Vaccine 09563 Given 08/28/2009 Influenza Virus Vaccine 13761 Given 10/05/2005 Influenza Virus Vaccine Vital Signs [...] For Dermpath <pending> Basic Metabolic Panel 08/11/2021 [facility] colette cheng Milk Route Deliverer: [place] [address] [phone] Glucose 110 mg/dL High 74 - 99 [...] mL/min >60 2 Laboratory test finding 07/07/2021 [facility] [address] [place] [address] [phone] Free T3 3.4 pg/mL Normal 2.2-4.0 Complete Blood Count 07/07/2021 [facility] Milk Route Deliverer: [place] [address] [phone] WBC 5.2 x10*3/UL 4.1 - 10.9 RBC [...] 2.0 - 7.8 Comprehensive Chem Profile 07/07/2021 [place] colette Garsia Milk Route Deliverer: [place] [address] [phone] Glucose 91 mg/dL 74 - 99 3 [...] 60 mL/min >60 4 Lipid Profile 07/07/2021 [facility] Milk Route Deliverer: Dr Terry Arnold [place] [address] [phone] Cholesterol 197 mg/dL 131 - 200 Triglycerides 55 mg/dL 30 - 150 HDL Cholesterol 65 mg/dL High 35 - 60 LDL (Calculated) 121 CALC 50 - 159 Laboratory test finding 07/07/2021 [place] [facility] Roller Checker is, Milk Route Deliverer: Dr Terry Arnold [place], [facility] [phone] Thyroid Stimulating Hormone 1.58 uIU/mL 0.3 6 - 3.74 Laboratory test finding 07/07/2021 [facility] Roller Checker is, Milk Route Deliverer: Dr Terry Arnold [place] [id number] [phone] T4 Free 0.84 ng/dL 0.76 - 1.46 Laboratory test finding 03/12/2021 [place] [facility] Roller Checker is, Milk Route Deliverer: Dr Terry Arnold [place] [id number] [phone] Thyroid Stimulating Hormone 1.26 uIU/mL 0.3 6 - 3.74 Liver Function Profile 02/17/2021 [facility] Milk Route Deliverer: Dr Terry Arnold [place] [id number] [phone] Alk. Phosphatase 65 mg/dL 46 - 116 [...] LITTLE GFR LEFT ESRD GFR <15 ON APPLICATIONS SALES REPRESENTATIVE 3 100-125 mg/dL PRE-DIABET ES/FASTING >126 mg/dL DIABETES/FASTING 4 CHRONIC KIDNEY DISEASE STAGI NG PER NKF STAGE I & II GFR >= 60 NORMAL TO MILDLY DECREASED STAGE III GFR 30-59 MODERATELY DECREASED STAGE IV GFR 15-29 SEVERELY DECREASED STAGE V GFR <15 VERY LITTLE GFR LEFT ESRD GFR <15 ON APPLICATIONS SALES REPRESENTATIVE Procedures Date Code Description Status 08/11/2021 24806 EX Benign Les (3.1cm - 4.0cm) Tr unk, Arms, Legs Completed 08/11/2021 07668 Office/Outpatient Established SF MDM 10-19 Min Completed 07/07/2021 81192 Office/Outpatient Established Mo d MDM 30-39 Min Completed 03/12/2021 04564 Office/Outpatient Established Lo w MDM 20-29 Min Completed 11/10/2020 [id number] Mammogram Completed 11/06/2019 [id number] Mammogram Completed 11/05/2018 [id number] Mammogram Completed 11/02/2017 [id number] Mammogram Completed 09/10/2016 [id number] Mammogram Completed 09/07/2015 [id number] Mammogram Completed 09/05/2014 [id number] Mammogram Completed 08/14/2013 [id number] Colonoscopy Completed 07/25/2013 [id number] Mammogram Completed 07/24/2012 [id number] Mammogram Completed 07/20/2012 [id number] Mammogram Completed 07/20/2011 [id number] Mammogram Completed 07/19/2010 [id number] Mammogram Completed 06/02/2003 [id number] Bone Mineral Density Test Comple Nine Star Description No Information Available Encounters Type Date Location Provider Dx Diagnosis Office Visit 08/11/2021 1:20p [facility] PThanh Atkins, ANP D48.5 Neoplasm of uncertain behavior of skin I10 Essential (primary) hyperten kenton Office Visit 07/07/2021 9:[facility]a [facility], ANP 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 * 01/11/2022 10:40 am - CHERRIE Isaac at [facility] 08/11/2021 - CHERRIE Isaac* D48.5 Neoplasm of uncertain behavior of skin * I10 Essential (primary) hypertension Functional Status Description No Information Available Mental Status Description No Information Available Referrals Refer to Reason for Referral Status Appt Date [facility] CONSULT FOR MEDICAL NUTRITION THER APY DX: OBESITY Patient Notified 04/05/[address] [place] [address] [phone]
--- OUTSIDE RECORDS SUMMARY | 2021-09-13 07:06 | CCD | Continuity of Care Document ---
Author Author Enid Atkins Organization Unknown Address [address] [facility] [address] [place] [address] Phone [phone] Care Team Providers Care Epic Application Coordinator Name Role Phone Estrellita Atkins AUTM [phone] Juliano Burk AUTM [phone] Problems Description No Information Available Social History Type Date Description Comments Sex Unknown ETOH Use Drinks Alcoholic Beverages Occas ionally Tobacco Use Start: Unknown Patient has never smoked Allergies, Adverse Reactions, Alerts Active Allergies Criticality Reaction | Severity Comments Date Sulfa Unable to assess criticality 02/06/2012 Medications Active Medications SIG Qnty Indications Ordering Provide r Date Lisinopril 10mg Tablets 1 by mouth every day 90tabs CHERRIE Isaac 01/04/[address] 1 by mouth every other day 30caps CHERRIE Isaac 04/22/2019 Dymista 137-50mcg/Act Suspension 1 spray each nostril bid 69gm CHERRIE Isaac 11/21/2018 Aleve 220mg Tablets 1 by mouth twice a day w/ food for 10-14 days then as needed Unknown Myrbetriq 50mg Tablets ER 24HR 1 by mouth every day Unknown Medications Administered in Office Medication SIG Qnty Indications Ordering Provider Date Immunization Adminstration,1 Vaccine/Tox oid Injection OJ Obrien JR 05/2021 Immunization Adminstration,1 Vaccine/Tox oid Injection CHERRIE Isaac 019 Depo-Medrol Injection Injection CHERRIE Isaac 07/03/2012 Administration Of Flu Vaccine Inj ection CHERRIE Isaac 10/05/2005 Immunizations CPT Code Status Date Vaccine Lot # [id number] Given 11/26/2020 Adacel- Tetanus Diphtheria P ertussis (Age64 & Under) [id number] 54288 Given 11/25/2019 Influenza Vaccin e Quadrivalent Preser/Antibiotic Free Im Use 55298 Given 11/21/2018 Influenza Virus Vaccine, Quadrivalent (Cciiv4), Derived From Cell [id number] Q2037 Given 08/25/2014 Fluvirin Virus Vaccine 39202 21 53833 Given 06/26/2013 PPD [id number] 18745 Given 02/06/2012 Zoster Vaccine 45007 Given 08/28/2009 Influenza Virus Vaccine 63069 Given 10/05/2005 Influenza Virus Vaccine Vital Signs Date Vital Result Comment 07/07/2021 9:29am BP Systolic 128 mmHg BP Diastolic 86 mmHg Heart Rate 67 /min Height 63 inches 5'3" Weight 184.00 lb O2 % BldC Oximetry 96 % BMI (Body Mass Index) 32.6 kg/m2 03/12/2021 12:57pm BP Systolic 144 mmHg BP Diastolic 82 mmHg Heart Rate 84 /min Height 63 inches 5'3" Weight 188.00 lb O2 % BldC Oximetry 98 % BMI (Body Mass Index) 33.3 kg/m2 Results Test Acquired Date Facility Test Result H/L Range Note Laboratory test finding 07/07/2021 [facility] [address] [place] [address] [phone] Free T3 <pending> Complete Blood Count 07/07/2021 [facility] Director Television News: [place] [address] [phone] WBC 5.2 x10*3/UL 4.1 - 10.9 RBC [...] 2.0 - 7.8 Comprehensive Chem Profile 07/07/2021 [facility], Director Television News: [place] Terry [place] [address] [phone] Glucose 91 mg/dL 74 - 99 1 BUN 17 mg/dL 7 - 18 Creatinine [...] mL/min >60 GFR >= 60 mL/min >60 2 Lipid Profile 07/07/2021 [facility] , Director Television News: [place] Terry [place] [address] [phone] Cholesterol 197 mg/dL 131 - 200 Triglycerides 55 mg/dL 30 - 150 HDL Cholesterol 65 mg/dL High 35 - 60 LDL (Calculated) 121 CALC 50 - 159 Laboratory test finding 07/07/2021 [facility] [employer] [facility] caryl, Director Television News: [place] Teryr [place] [address] [phone] Thyroid Stimulating Hormone 1.58 uIU/mL 0.3 6 - 3.74 Laboratory test finding 07/07/2021 [facility] [employer] [facility] colette hutson Director Television News: [place] [address] [phone] Free T4 <pending> Laboratory test finding 03/12/2021 [facility] Harris Director Television News: Dr Terry Arnold [place] [id number] [phone] Thyroid Stimulating Hormone 1.26 uIU/mL 0.3 6 - 3.74 Liver Function Profile 02/17/2021 [facility] Zayas Director Television News: [place] Terry [place] [address] [phone] Alk. Phosphatase 65 mg/dL 46 - 116 [...] LITTLE GFR LEFT ESRD GFR <15 ON HYDROELECTRIC OPERATOR Procedures Date Code Description Status 03/12/2021 94485 Office/Outpatient Established Lo w MDM 20-29 Min Completed 11/10/2020 [id number] Mammogram Completed 11/06/2019 [id number] Mammogram Completed 11/05/2018 [id number] Mammogram Completed 11/02/2017 [id number] Mammogram Completed 09/10/2016 [id number] Mammogram Completed 09/07/2015 [id number] Mammogram Completed 09/05/2014 [id number] Mammogram Completed 08/14/2013 [id number] Colonoscopy Completed 07/25/2013 [id number] Mammogram Completed 07/24/2012 [id number] Mammogram Completed 07/20/2012 [id number] Mammogram Completed 07/20/2011 [id number] Mammogram Completed 07/19/2010 [id number] Mammogram Completed 06/02/2003 [id number] Bone Mineral Density Test Comple [employer] Description No Information Available Encounters Type Date Location Provider Dx Diagnosis Office Visit 03/12/2021 1:00p [facility] 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 * 01/11/2022 10:40 am - CHERRIE Isaac at [facility] 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
--- OUTSIDE RECORDS SUMMARY | 2021-09-13 07:06 | CCD | Continuity of Care Document ---
Author Author Enid Atkins Organization Unknown Address [address] [facility] [address] [place] [address] Phone [phone] Care Team Providers Care Online Marketing Strategist Name Role Phone Estrellita Atkins AUTM [phone] Juliano Burk AUTM [phone] Problems Description No Information Available Social History [...] CPT Code Status Date Vaccine Lot # [id number] Given 11/26/2020 Adacel- Tetanus Diphtheria P ertussis [id number] 83278 Given 11/25/2019 Influenza Vaccin e Quadrivalent Preser/Antibiotic Free Im Use 17590 Given 11/21/2018 Influenza Virus Vaccine, Quadrivalent (Cciiv4), Derived From Cell [id number] Q2037 Given 08/25/2014 Fluvirin Virus Vaccine 44001 21 07819 Given 06/26/2013 PPD [id number] 31476 Given 02/06/2012 Zoster Vaccine 66612 Given 08/28/2009 Influenza Virus Vaccine 57218 Given 10/05/2005 Influenza Virus Vaccine Vital Signs [...] For Dermpath <pending> Basic Metabolic Panel 08/11/2021 [facility] E Mail System Administrator: [place] [address] [phone] Glucose 110 mg/dL High 74 - 99 [...] mL/min >60 2 Laboratory test finding 07/07/2021 [facility] [address] [place] [address] [phone] Free T3 3.4 pg/mL Normal 2.2-4.0 Complete Blood Count 07/07/2021 [facility] E Mail System Administrator: [place] [address] [phone] WBC 5.2 x10*3/UL 4.1 - 10.9 RBC [...] 2.0 - 7.8 Comprehensive Chem Profile 07/07/2021 [facility] G[facility] E Mail System Administrator: [place] [address] [phone] Glucose 91 mg/dL 74 - 99 3 [...] 60 mL/min >60 4 Lipid Profile 07/07/2021 [facility] E Mail System Administrator: Dr Terry Arnold [place] [address] [phone] Cholesterol 197 mg/dL 131 - 200 Triglycerides 55 mg/dL 30 - 150 HDL Cholesterol 65 mg/dL High 35 - 60 LDL (Calculated) 121 CALC 50 - 159 Laboratory test finding 07/07/2021 [facility], E Mail System Administrator: Dr Terry Arnold [place], [facility] [phone] Thyroid Stimulating Hormone 1.58 uIU/mL 0.3 6 - 3.74 Laboratory test finding 07/07/2021 [facility], E Mail System Administrator: Dr Terry Arnold [place] [address] [phone] T4 Free 0.84 ng/dL 0.76 - 1.46 Laboratory test finding 03/12/2021 [facility], E Mail System Administrator: Dr Terry Arnold [place] [address] [phone] Thyroid Stimulating Hormone 1.26 uIU/mL 0.3 6 - 3.74 Liver Function Profile 02/17/2021 [facility] E Mail System Administrator: Dr Terry Arnold [place] [address] [phone] Alk. Phosphatase 65 mg/dL 46 - 116 [...] LITTLE GFR LEFT ESRD GFR <15 ON SECTION [employer] [place] [place]ARDEN 3 100-125 mg/dL PRE-DIABET ES/FASTING >126 mg/dL DIABETES/FASTING 4 CHRONIC KIDNEY DISEASE STAGI NG PER NKF STAGE I & II GFR >= 60 NORMAL TO MILDLY DECREASED STAGE III GFR 30-59 MODERATELY DECREASED STAGE IV GFR 15-29 SEVERELY DECREASED STAGE V GFR <15 VERY LITTLE GFR LEFT ESRD GFR <15 ON SECTION FOREST FIRE WARDEN Procedures Date Code Description Status 07/07/2021 19827 Office/Outpatient Established Mo d MDM 30-39 Min Completed 03/12/2021 08188 Office/Outpatient Established Lo w MDM 20-29 Min Completed 11/10/2020 [id number] Mammogram Completed 11/06/2019 [id number] Mammogram Completed 11/05/2018 [id number] Mammogram Completed 11/02/2017 [id number] Mammogram Completed 09/10/2016 [id number] Mammogram Completed 09/07/2015 [id number] Mammogram Completed 09/05/2014 [id number] Mammogram Completed 08/14/2013 [id number] Colonoscopy Completed 07/25/2013 [id number] Mammogram Completed 07/24/2012 [id number] Mammogram Completed 07/20/2012 [id number] Mammogram Completed 07/20/2011 [id number] Mammogram Completed 07/19/2010 [id number] Mammogram Completed 06/02/2003 [id number] Bone Mineral Density Test Comple [employer] Description No Information Available Encounters Type Date Location Provider Dx Diagnosis Office Visit 07/07[facility]2021 [facility] 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 I10 Essential (primary) hyperten kenton K21.9 Gastro-esophageal reflux dis ease without esophagitis R32 Unspecified urinary incontin ence E78.5 Hyperlipidemia, unspecified Office Visit 03/12/2021 1:00p [facility] hutson, ANP 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 I10 Essential (primary) hyperten kenton K21.9 Gastro-esophageal reflux dis ease without esophagitis Assessments Date Code Description Provider 08/02/2021 Z01.810 Encounter for preprocedural card iovascular examination Ted Arnold, DO 08/02/2021 H26.9 Unspecified cataract Ted Arnold, DO 08/02/2021 I10 Essential (primary) hypertension Ted Arnold, DO 07/07/2021 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 Estrellitaollie Jurado cassyer, ANP 07/07/2021 I10 Essential (primary) hypertension Estrellita ChetIsai Atkins, ANP 07/07/2021 K21.9 Gastro-esophageal reflux disease without esophagitis Estrellita Atkins, ANP 07/07/2021 R32 Unspecified urinary incontinence Estrellita Atkins, ANP 07/07/2021 E78.5 Hyperlipidemia, unspecified Marissac y Damon Atkins, ANP 03/12/2021 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 * 01/11/2022 10:40 am - CHERRIE Isaac at [facility] 08/02/2021 - Ted Arnold DO* Z01.810 Encounter for preprocedural cardiovascular examination * H26.9 Unspecified cataract * I10 Essential (primary) hypertension* Comments:* Not at goal, increasing lisinopril to 20mg in addition to lifestyle changes and DASH diet. * All * New Medication:* Lisinopril 20 mg - 1 by mouth every day Functional Status Description No Information Available Mental Status Description No Information Available Referrals Refer to Dr Reason for Referral Status Appt Date [facility] CONSULT FOR MEDICAL NUTRITION THER APY DX: OBESITY Patient Notified 04/05/2021 [address] [place] [address] [phone]
--- OUTSIDE RECORDS SUMMARY | 2021-09-13 07:06 | CCD | Continuity of Care Document ---
Author Author Enid Atkins Organization Unknown Address [address] [facility] [address] [place] [address] Phone [phone] Care Team Providers Care Progressive Care Unit Registered Nurse Name Role Phone Estrellita Atkins AUTM [phone] Juliano Burk AUTM [phone] Problems Description No Information Available Social History [...] CPT Code Status Date Vaccine Lot # [id number] Given 11/26/2020 Adacel- Tetanus Diphtheria P ertussis [id number] 31280 Given 11/25/2019 Influenza Vaccin e Quadrivalent Preser/Antibiotic Free Im Use 39517 Given 11/21/2018 Influenza Virus Vaccine, Quadrivalent (Cciiv4), Derived From Cell [id number] Q2037 Given 08/25/2014 Fluvirin Virus Vaccine 64098 21 73090 Given 06/26/2013 PPD [id number] 32372 Given 02/06/2012 Zoster Vaccine 67902 Given 08/28/2009 Influenza Virus Vaccine 50356 Given 10/05/2005 Influenza Virus Vaccine Vital Signs [...] 08/11/2021 [facility] For Dermpath <pending> Laboratory test finding 07/07/2021 [facility] [address] [place], [place] [address] [phone] Free T3 3.4 pg/mL Normal 2.2-4.0 Complete Blood Count 07/07/2021 [facility] Configurator: [place] [address] [phone] WBC 5.2 x10*3/UL 4.1 - 10.9 RBC [...] 2.0 - 7.8 Comprehensive Chem Profile 07/07/2021 [facility], Configurator: [place] [address] [phone] Glucose 91 mg/dL 74 - 99 1 [...] 60 mL/min >60 2 Lipid Profile 07/07/2021 [facility] , Configurator: [place] [address] [phone] Cholesterol 197 mg/dL 131 - 200 Triglycerides 55 mg/dL 30 - 150 HDL Cholesterol 65 mg/dL High 35 - 60 LDL (Calculated) 121 CALC 50 - 159 Laboratory test finding 07/07/2021 [facility], Configurator: [place] [address] [phone] Thyroid Stimulating Hormone 1.58 uIU/mL 0.3 6 - 3.74 Laboratory test finding 07/07/2021 [facility] colette hutson Configurator: [place] [address] [phone] T4 Free 0.84 ng/dL 0.76 - 1.46 Laboratory test finding 03/12/2021 [facility] colette hutson Configurator: Dr Terry Arnold [place], [place] [address] [phone] Thyroid Stimulating Hormone 1.26 uIU/mL 0.3 6 - 3.74 Liver Function Profile 02/17/2021 [facility] Configurator: Dr Terry Arnold [place], [place] [address] [phone] Alk. Phosphatase 65 mg/dL 46 - 116 [...] LITTLE GFR LEFT ESRD GFR <15 ON CLINICAL TRIAL ASSISTANT Procedures Date Code Description Status 07/07/2021 97826 Office/Outpatient Established Mo d MDM 30-39 Min Completed 03/12/2021 65405 Office/Outpatient Established Lo w MDM 20-29 Min Completed 11/10/2020 [id number] Mammogram Completed 11/06/2019 [id number] Mammogram Completed 11/05/2018 [id number] Mammogram Completed 11/02/2017 [id number] Mammogram Completed 09/10/2016 [id number] Mammogram Completed 09/07/2015 [id number] Mammogram Completed 09/05/2014 [id number] Mammogram Completed 08/14/2013 [id number] Colonoscopy Completed 07/25/2013 [id number] Mammogram Completed 07/24/2012 [id number] Mammogram Completed 07/20/2012 [id number] Mammogram Completed 07/20/2011 [id number] Mammogram Completed 07/19/2010 [id number] Mammogram Completed 06/02/2003 [id number] Bone Mineral Density Test Comple [employer] Description No Information Available Encounters Type Date Location Provider Dx Diagnosis Office Visit 07/07/2021 9[facility]20a [facility], ANP 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 * 01/11/2022 10:40 am - Estrellita Atkins, ANP at [facility] 08/02/2021 - Ted Arnold DO* [...] for Referral Status Appt Date [facility] CONSULT FOR MEDICAL NUTRITION THER APY DX: OBESITY Patient Notified 04/05/[address] [place] [address] [phone]
--- OUTSIDE RECORDS SUMMARY | 2021-09-13 07:06 | CCD | Continuity of Care Document ---
Author Author Enid Atkins Organization Unknown Address [address] [facility] [address] [place] [address] Phone [phone] Care Team Providers Care Seafood Service Team Member Name Role Phone Estrellita Atkins AUTM [phone] Juliano Burk AUTM [phone] Problems Description No Information Available Social History [...] CPT Code Status Date Vaccine Lot # [id number] Given 11/26/2020 Adacel- Tetanus Diphtheria P ertussis [id number] 69788 Given 11/25/2019 Influenza Vaccin e Quadrivalent Preser/Antibiotic Free Im Use 18984 Given 11/21/2018 Influenza Virus Vaccine, Quadrivalent (Cciiv4), Derived From Cell [id number] Q2037 Given 08/25/2014 Fluvirin Virus Vaccine 73344 21 66785 Given 06/26/2013 PPD [id number] 06735 Given 02/06/2012 Zoster Vaccine 06652 Given 08/28/2009 Influenza Virus Vaccine 39252 Given 10/05/2005 Influenza Virus Vaccine Vital Signs [...] For Dermpath <pending> Basic Metabolic Panel 08/11/2021 [facility] Carrier: [place] [address] [phone] Glucose 110 mg/dL High 74 - 99 [...] mL/min >60 2 Laboratory test finding 07/07/2021 [facility] [address] [place] [address] [phone] Free T3 3.4 pg/mL Normal 2.2-4.0 Complete Blood Count 07/07/2021 [facility] Hospital Carrier: [place] [address] [phone] WBC 5.2 x10*3/UL 4.1 - 10.9 RBC [...] 2.0 - 7.8 Comprehensive Chem Profile 07/07/2021 [facility] Carrier: [place] [address] [phone] Glucose 91 mg/dL 74 - 99 3 [...] 60 mL/min >60 4 Lipid Profile 07/07/2021 [facility] Hospital Carrier: Dr Terry Arnold [place], [place] [address] [phone] Cholesterol 197 mg/dL 131 - 200 Triglycerides 55 mg/dL 30 - 150 HDL Cholesterol 65 mg/dL High 35 - 60 LDL (Calculated) 121 CALC 50 - 159 Laboratory test finding 07/07/2021 [facility] Carrier: Dr Terry Arnold [facility], [facility] [phone] Thyroid Stimulating Hormone 1.58 uIU/mL 0.3 6 - 3.74 Laboratory test finding 07/07/2021 [facility] Carrier: Dr Terry Arnold [place] [address] [phone] T4 Free 0.84 ng/dL 0.76 - 1.46 Laboratory test finding 03/12/2021 [facility] Carrier: Dr Terry Arnold [place] [address] [phone] Thyroid Stimulating Hormone 1.26 uIU/mL 0.3 6 - 3.74 Liver Function Profile 02/17/2021 [facility] Carrier: Dr Terry Arnold [place] [address]37 [phone] Alk. Phosphatase 65 mg/dL 46 - 116 [...] LITTLE GFR LEFT ESRD GFR <15 ON SAMPLER RADIOACTIVE WASTE 3 100-125 mg/dL PRE-DIABET ES/FASTING >126 mg/dL DIABETES/FASTING 4 CHRONIC KIDNEY DISEASE STAGI NG PER NKF STAGE I & II GFR >= 60 NORMAL TO MILDLY DECREASED STAGE III GFR 30-59 MODERATELY DECREASED STAGE IV GFR 15-29 SEVERELY DECREASED STAGE V GFR <15 VERY LITTLE GFR LEFT ESRD GFR <15 ON SAMPLER RADIOACTIVE WASTE Procedures Date Code Description Status 07/07/2021 16722 Office/Outpatient Established Mo d MDM 30-39 Min Completed 03/12/2021 73889 Office/Outpatient Established Lo w MDM 20-29 Min Completed 11/10/2020 [id number] Mammogram Completed 11/06/2019 [id number] Mammogram Completed 11/05/2018 [id number] Mammogram Completed 11/02/2017 [id number] Mammogram Completed 09/10/2016 [id number] Mammogram Completed 09/07/2015 [id number] Mammogram Completed 09/05/2014 [id number] Mammogram Completed 08/14/2013 [id number] Colonoscopy Completed 07/25/2013 [id number] Mammogram Completed 07/24/2012 [id number] Mammogram Completed 07/20/2012 [id number] Mammogram Completed 07/20/2011 [id number] Mammogram Completed 07/19/2010 [id number] Mammogram Completed 06/02/2003 [id number] Bone Mineral Density Test Comple [employer] Description No Information Available Encounters Type Date Location Provider Dx Diagnosis Office Visit 07/07/2021 9:20a [facility], [facility]P 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 I10 Essential (primary) hyperten kenton K21.9 Gastro-esophageal reflux dis ease without esophagitis R32 Unspecified urinary incontin ence E78.5 Hyperlipidemia, unspecified Office Visit 03/12/2021 1:00p [facility] hutson, ANP L63.8 Other alopecia [...] 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 * 01/11/2022 10:40 am - CHERRIE Isaac at [facility] 08/02/2021 - Ted Arnold DO* [...] for Referral Status Appt Date [facility] CONSULT FOR MEDICAL NUTRITION THER APY DX: OBESITY Patient Notified 04/05/2021 [address] [place] [address] [phone]
--- OUTSIDE RECORDS SUMMARY | 2021-09-13 07:06 | CCD | Continuity of Care Document ---
Author Author Enid Atkins Organization Unknown Address [address] [facility] [address] [place] [address] Phone [phone] Care Team Providers Care Blowing Engineer Name Role Phone Estrellita Atkins AUTM [phone] Juliano Burk AUTM [phone] Problems Description No Information Available Social History [...] CPT Code Status Date Vaccine Lot # [id number] Given 11/26/2020 Adacel- Tetanus Diphtheria P ertussis (Age64 & Under) [id number] 91159 Given 11/25/2019 Influenza Vaccin e Quadrivalent Preser/Antibiotic Free Im Use 95184 Given 11/21/2018 Influenza Virus Vaccine, Quadrivalent (Cciiv4), Derived From Cell [id number] [id number] Given 08/25/2014 Fluvirin Virus Vaccine 98120 21 15262 Given 06/26/2013 PPD [id number] 96842 Given 02/06/2012 Zoster Vaccine 71918 Given 08/28/2009 Influenza Virus Vaccine 66385 Given 10/05/2005 Influenza Virus Vaccine Vital Signs [...] H/L Range Note Laboratory test finding 07/07/2021 [facility] [address] [place] [address] [phone] Free T3 <pending> Laboratory test finding 07/07/2021 [facility] colette hutson Vacuum Truck Driver: [place] [address] [phone] TSH <pending> Laboratory test finding 07/07/2021 [place] colette Pendleton Vacuum Truck Driver: MORIAH Hayden [address] [phone] Free T4 <pending> Laboratory test finding 03/12/2021 [place] colette Pendleton Vacuum Truck Driver: [place] [address] [phone] Thyroid Stimulating Hormone 1.26 uIU/mL 0.3 6 - 3.74 Liver Function Profile 02/17/2021 [facility] Vacuum Truck Driver: Dr Terry Arnold [place], [place] [address] [phone] Alk. Phosphatase 65 mg/dL 46 - 116 Total Bilirubin 0.4 mg/dL 0.2 - 1.0 Ast (Sgot) 25 U/L 15 - 37 Alt (SGPT) 39 U/L 12 - 78 Albumin 4.4 g/dL 3.4 - 5.0 Total Protein 7.8 g/dL 6.4 - 8.2 Direct Bilirubin 0.1 mg/dL 0.0 - 0.2 A/G Ratio 1.29 CALC 1.00 - 1.90 Procedures Date Code Description Status 03/12/2021 35327 Office/Outpatient Established Mitsy anderson MDM 20-29 Min Completed 11/10/2020 [id number] Mammogram Completed 11/06/2019 [id number] Mammogram Completed 11/05/2018 [id number] Mammogram Completed 11/02/2017 [id number] Mammogram Completed 09/10/2016 [id number] Mammogram Completed 09/07/2015 [id number] Mammogram Completed 09/05/2014 [id number] Mammogram Completed 08/14/2013 [id number] Colonoscopy Completed 07/25/2013 [id number] Mammogram Completed 07/24/2012 [id number] Mammogram Completed 07/20/2012 [id number] Mammogram Completed 07/20/2011 [id number] Mammogram Completed 07/19/2010 [id number] Mammogram Completed 06/02/2003 [id number] Bone Mineral Density Test Comple Playdate App Description No Information Available Encounters Type Date Location Provider Dx Diagnosis Office Visit 03/12/2021 1:00p [facility] Estrellita Atkins, CHERRIE L63.8 Other [...] ewhere classified Lab Schedule Plan of Treatment No Information Available Functional Status Description No Information Available Mental Status Description No Information Available Referrals Refer to Dr Reason for Referral Status Appt Date [facility] CONSULT FOR MEDICAL NUTRITION THER APY DX: OBESITY Patient Notified 04/05/[address] [place] [address] [id number] [phone]
--- OUTSIDE RECORDS SUMMARY | 2021-09-13 07:06 | CCD | Continuity of Care Document ---
Author Author Enid Atkins Organization Unknown Address [address] [facility] [address] [place] [address] Phone [phone] Care Team Providers Care Toe Former Stitchdowns Name Role Phone Estrellita Atkins AUTM [phone] Juliano Burk AUTM [phone] Problems Description No Information Available Social History [...] CPT Code Status Date Vaccine Lot # [id number] Given 11/26/2020 Adacel- Tetanus Diphtheria P ertussis (Age64 & Under) [id number] 42905 Given 11/25/2019 Influenza Vaccin e Quadrivalent Preser/Antibiotic Free Im Use 15741 Given 11/21/2018 Influenza Virus Vaccine, Quadrivalent (Cciiv4), Derived From Cell [id number] Q2037 Given 08/25/2014 Fluvirin Virus Vaccine 97386 21 37772 Given 06/26/2013 PPD [id number] 22626 Given 02/06/2012 Zoster Vaccine 27212 Given 08/28/2009 Influenza Virus Vaccine 69208 Given 10/05/2005 Influenza Virus Vaccine Vital Signs [...] H/L Range Note Laboratory test finding 07/07/2021 [facility] [address] [place] [address] [phone] Free T3 3.4 pg/mL Normal 2.2-4.0 Complete Blood Count 07/07/2021 [facility] Short Filler Bunch Machine Operator: [place] [address] [phone] WBC 5.2 x10*3/UL 4.1 - 10.9 RBC [...] 2.0 - 7.8 Comprehensive Chem Profile 07/07/2021 [facility], Short Filler Bunch Machine Operator: [place] [address] [phone] Glucose 91 mg/dL 74 - 99 1 [...] 60 mL/min >60 2 Lipid Profile 07/07/2021 [facility] , Short Filler Bunch Machine Operator: [place] [address] [phone] Cholesterol 197 mg/dL 131 - 200 Triglycerides 55 mg/dL 30 - 150 HDL Cholesterol 65 mg/dL High 35 - 60 LDL (Calculated) 121 CALC 50 - 159 Laboratory test finding 07/07/2021 [facility], Short Filler Bunch Machine Operator: [place] [address] [phone] Thyroid Stimulating Hormone 1.58 uIU/mL 0.3 6 - 3.74 Laboratory test finding 07/07/2021 [facility], Short Filler Bunch Machine Operator: Dr Terry Arnold [place], [place] [address]5832 [phone] T4 Free 0.84 ng/dL 0.76 - 1.46 Laboratory test finding 03/12/2021 [facility] Techn[facility] caryl, colette Short Filler Bunch Machine Operator: Dr Terry Arnold [place], [place] [address]01 [phone] Thyroid Stimulating Hormone 1.26 uIU/mL 0.3 6 - 3.74 Liver Function Profile 02/17/2021 [facility] Short Filler Bunch Machine Operator: Dr Terry Arnold [place], [place] [id number] [phone] Alk. Phosphatase 65 mg/dL 46 - 116 [...] LITTLE GFR LEFT ESRD GFR <15 ON GEOMETRY PROFESSOR Procedures Date Code Description Status 07/07/2021 88702 Office/Outpatient Established Mo d MDM 30-39 Min Completed 03/12/2021 94231 Office/Outpatient Established Lo w MDM 20-29 Min Completed 11/10/2020 [id number] Mammogram Completed 11/06/2019 [id number] Mammogram Completed 11/05/2018 [id number] Mammogram Completed 11/02/2017 [id number] Mammogram Completed 09/10/2016 [id number] Mammogram Completed 09/07/2015 [id number] Mammogram Completed 09/05/2014 [id number] Mammogram Completed 08/14/2013 [id number] Colonoscopy Completed 07/25/2013 [id number] Mammogram Completed 07/24/2012 [id number] Mammogram Completed 07/20/2012 [id number] Mammogram Completed 07/20/2011 [id number] Mammogram Completed 07/19/2010 [id number] Mammogram Completed 06/02/2003 [id number] Bone Mineral Density Test Comple Buzzero Description No Information Available Encounters Type Date Location Provider Dx Diagnosis Office Visit 07/07/2021 9:20a [facility] 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 * 01/11/2022 10:40 am - CHERRIE Isaac at [facility] 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
--- OUTSIDE RECORDS SUMMARY | 2021-09-13 07:06 | CCD | Continuity of Care Document ---
Author Author Enid Atkins Organization Unknown Address [address] [facility] [address] [place] [address] Phone [phone] Care Team Providers Care Secondary Art Teacher Name Role Phone Estrellita Atkins AUTM [phone] Juliano Burk AUTM [phone] Problems Description No Information Available Social History [...] CPT Code Status Date Vaccine Lot # [id number] Given 11/26/2020 Adacel- Tetanus Diphtheria P ertussis [id number] 10539 Given 11/25/2019 Influenza Vaccin e Quadrivalent Preser/Antibiotic Free Im Use 41739 Given 11/21/2018 Influenza Virus Vaccine, Quadrivalent (Cciiv4), Derived From Cell [id number] Q2037 Given 08/25/2014 Fluvirin Virus Vaccine 53872 21 22563 Given 06/26/2013 PPD [id number] 03021 Given 02/06/2012 Zoster Vaccine 26296 Given 08/28/2009 Influenza Virus Vaccine 83513 Given 10/05/2005 Influenza Virus Vaccine Vital Signs [...] For Dermpath <pending> Laboratory test finding 07/07/2021 [facility] [address] [place], [place] 9[address]30 [phone] Free T3 3.4 pg/mL Normal 2.2-4.0 Complete Blood Count 07/07/2021 [facility] Form Maker Plaster: [place] [address] [phone] WBC 5.2 x10*3/UL 4.1 - 10.9 RBC [...] 2.0 - 7.8 Comprehensive Chem Profile 07/07/2021 [facility], Form Maker Plaster: [place] [address] [phone] Glucose 91 mg/dL 74 - 99 1 [...] 60 mL/min >60 2 Lipid Profile 07/07/2021 [facility] , Form Maker Plaster: [place] [address] [phone] Cholesterol 197 mg/dL 131 - 200 Triglycerides 55 mg/dL 30 - 150 HDL Cholesterol 65 mg/dL High 35 - 60 LDL (Calculated) 121 CALC 50 - 159 Laboratory test finding 07/07/2021 [facility] [facility] caryl, Form Maker Plaster: [place] [address] [phone] Thyroid Stimulating Hormone 1.58 uIU/mL 0.3 6 - 3.74 Laboratory test finding 07/07/2021 [facility] [facility] colette hutson Form Maker Plaster: [place] [address] [phone] T4 Free 0.84 ng/dL 0.76 - 1.46 Laboratory test finding 03/12/2021 [facility] [employer] [facility] colette hutson Form Maker Plaster: Dr Terry Arnold [place], [place] [id number] [phone] Thyroid Stimulating Hormone 1.26 uIU/mL 0.3 6 - 3.74 Liver Function Profile 02/17/2021 [facility] Form Maker Plaster: Dr Terry Arnold [place], [place] [id number] [phone] Alk. Phosphatase 65 mg/dL 46 - 116 [...] LITTLE GFR LEFT ESRD GFR <15 ON CHILDREN'S AUTHOR Procedures Date Code Description Status 07/07/2021 75948 Office/Outpatient Established Mo d MDM 30-39 Min Completed 03/12/2021 98973 Office/Outpatient Established Lo w MDM 20-29 Min Completed 11/10/2020 [id number] Mammogram Completed 11/06/2019 [id number] Mammogram Completed 11/05/2018 [id number] Mammogram Completed 11/02/2017 [id number] Mammogram Completed 09/10/2016 [id number] Mammogram Completed 09/07/2015 [id number] Mammogram Completed 09/05/2014 [id number] Mammogram Completed 08/14/2013 [id number] Colonoscopy Completed 07/25/2013 [id number] Mammogram Completed 07/24/2012 [id number] Mammogram Completed 07/20/2012 [id number] Mammogram Completed 07/20/2011 [id number] Mammogram Completed 07/19/2010 [id number] Mammogram Completed 06/02/2003 [id number] Bone Mineral Density Test Comple [facility] Description No Information Available Encounters Type Date Location Provider Dx Diagnosis Office Visit 07/07/2021 9[facility]20a [facility] ANP 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 * 01/11/2022 10:40 am - Estrellita Atkins, ANP at [facility] 08/02/2021 - Ted Arnold DO* [...] for Referral Status Appt Date [facility] CONSULT FOR MEDICAL NUTRITION THER APY DX: OBESITY Patient Notified 04/05/[address] [place] [address] [phone]
--- OUTSIDE RECORDS SUMMARY | 2021-09-13 07:06 | CCD | Continuity of Care Document ---
Author Author Enid ESQUIVEL DO Organization Unknown Address [address] [facility] [address] [place] [address] Phone [phone] Care Team Providers Care Buffet Manager Name Role Phone Estrellita Atkins AUTM [phone] Juliano Burk AUTM [phone] Problems Description No Information Available Social History [...] 1 by mouth every day 90tabs Ted Esquivel DO 08/02/[address] [...] CPT Code Status Date Vaccine Lot # 68827 Given 11/26/2020 Adacel- Tetanus Diphtheria P ertussis (Age64 & Under) [id number] 29115 Given 11/25/2019 Influenza Vaccin e Quadrivalent Preser/Antibiotic [place] Im Use 71447 Given 11/21/2018 Influenza Virus Vaccine, Quadrivalent (Cciiv4), Derived From Cell [id number] Q2037 Given 08/25/2014 Fluvirin Virus Vaccine 24986 21 21600 Given 06/26/2013 PPD [id number] 78495 Given 02/06/2012 Zoster Vaccine 12884 Given 08/28/2009 Influenza Virus Vaccine 23854 Given 10/05/2005 Influenza Virus Vaccine Vital Signs Date Vital Result Comment 08/02/2021 9:13am BP Systolic 142 mmHg BP Diastolic 90 mmHg Heart Rate 72 /min Height 63 inches 5'3" Weight 184.00 lb BMI (Body Mass Index) 32.6 kg/m2 07/07/2021 9:29am BP Systolic 128 mmHg BP Diastolic 86 mmHg Heart Rate 67 /min Height 63 inches 5'3" Weight 184.00 lb O2 % BldC Oximetry 96 % BMI (Body Mass Index) 32.6 kg/m2 Results Test Acquired Date Facility Test Result H/L Range Note Laboratory test finding 07/07/2021 [facility] [address] [place], [place] [address] [phone] Free T3 3.4 pg/mL Normal 2.2-4.0 Complete Blood Count 07/07/2021 [facility] Rehabilitation Engineer: Dr Terry Esquivel [place], [place] [address]95 [phone] WBC 5.2 x10*3/UL 4.1 - 10.9 RBC [...] 2.0 - 7.8 Comprehensive Chem Profile 07/07/2021 [facility] Chan hodgson, Rehabilitation Engineer: Dr Terry [place]quivel [place] 12[address]381 [phone] Glucose 91 mg/dL 74 - 99 1 [...] 60 mL/min >60 2 Lipid Profile 07/07/2021 [facility] , Rehabilitation Engineer: Dr Terry [place] [address] [phone] Cholesterol 197 mg/dL 131 - 200 Triglycerides 55 mg/dL 30 - 150 HDL Cholesterol 65 mg/dL High 35 - 60 LDL (Calculated) 121 CALC 50 - 159 Laboratory test finding 07/07/2021 [facility] colette Pendleton Rehabilitation Engineer: Dr Terry Esquivel [place] 24[address] [phone] Thyroid Stimulating Hormone 1.58 uIU/mL 0.3 6 - 3.74 Laboratory test finding 07/07/2021 [facility] colette Pendleton Rehabilitation Engineer: [place] [address] [phone] T4 Free 0.84 ng/dL 0.76 - 1.46 Laboratory test finding 03/12/2021 [facility] caryl, colette Rehabilitation Engineer: [place] [address] [phone] Thyroid Stimulating Hormone 1.26 uIU/mL 0.3 6 - 3.74 Liver Function Profile 02/17/2021 [facility]im[facility] hicks, colette Rehabilitation Engineer: [place] [address] [phone] Alk. Phosphatase 65 mg/dL 46 - 116 [...] LITTLE GFR LEFT ESRD GFR <15 ON HOME OFFICE CLAIM SPECIALIST Procedures Date Code Description Status 07/07/2021 33806 Office/Outpatient Established Mo d MDM 30-39 Min Completed 03/12/2021 57623 Office/Outpatient Established Lo w MDM 20-29 Min Completed 11/10/2020 [id number] Mammogram Completed 11/06/2019 [id number] Mammogram Completed 11/05/2018 [id number] Mammogram Completed 11/02/2017 [id number] Mammogram Completed 09/10/2016 [id number] Mammogram Completed 09/07/2015 [id number] Mammogram Completed 09/05/2014 [id number] Mammogram Completed 08/14/2013 [id number] Colonoscopy Completed 07/25/2013 [id number] Mammogram Completed 07/24/2012 [id number] Mammogram Completed 07/20/2012 [id number] Mammogram Completed 07/20/2011 [id number] Mammogram Completed 07/19/2010 [id number] Mammogram Completed 06/02/2003 [id number] Bone Mineral Density Test Comple viavoo Description No Information Available Encounters Type Date Location Provider Dx Diagnosis Office Visit 07/07/2021 9:20a [facility] ANP 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 I10 Essential (primary) hyperten kenton K21.9 Gastro-esophageal reflux dis ease without esophagitis R32 Unspecified urinary incontin ence E78.5 Hyperlipidemia, unspecified Office Visit 03/12/2021 1:00p [facility], ANP 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 * 01/11/2022 10:40 am - CHERRIE Isaac at [facility] 08/02/2021 - Ted Esquivel DO* Z01.810 Encounter for preprocedural cardiovascular examination * H26.9 Unspecified cataract * I10 Essential (primary) hypertension * K21.9 Gastro-esophageal reflux disease without esophagitis * All * New Medication:* Lisinopril 20 mg - 1 by mouth every day Functional Status Description No Information Available Mental Status Description No Information Available Referrals Refer to Reason for Referral Status Appt Date [facility] CONSULT FOR MEDICAL NUTRITION THER APY DX: OBESITY Patient Notified 04/05/[address] [place] [address] [phone]
--- OUTSIDE RECORDS SUMMARY | 2021-09-13 07:07 | CCD ---
Author Author [facility] Organization [facility] Address Unknown Phone Unavailable Care Team Providers Care Head Wood Grinder Name Role Phone Chet York MD Unavailable Unavailable Chet York MD Unavailable Unavailable Chet York MD Unavailable Unavailable Chet York MD Unavailable Unavailable Chet York MD Unavailable Unavailable Chet York MD Unavailable Unavailable Chet York MD Unavailable Unavailable Chet York MD Unavailable Unavailable Chet York MD Unavailable Unavailable Chet York MD Unavailable Unavailable Chet York MD Unavailable [facility] Unavailable Unavailable KENNETH, J Estrellita ANP Unavailable Unavailable KENNETH, J Estrellita ANP Unavailable Unavailable KENNETH, J Estrellita ANP Unavailable Unavailable KENNETH, J Estrellita ANP Unavailable Unavailable KENNETH, J Estrellita ANP Unavailable Unavailable KENNETH, J Estrellita ANP Unavailable Unavailable KENNETH, J Estrellita ANP Unavailable Unavailable KENNETH, J Estrellita ANP Unavailable Unavailable KENNETH, J Estrellita ANP Unavailable Unavailable KENNETH, J Estrellita ANP Unavailable Unavailable KENNETH, J Estrellita ANP Unavailable Unavailable KENNETH, J Estrellita ANP Unavailable Unavailable KENNETH, J Estrellita ANP Unavailable Unavailable KENNETH, J Estrellita ANP Unavailable Unavailable KENNETH, J Estrellita ANP Unavailable Unavailable KENNETH, J Estrellita ANP Unavailable Unavailable KENNETH, J Estrellita ANP Unavailable Unavailable KENNETH, J Estrellita ANP Unavailable Unavailable KENNETH, J Estrellita ANP Unavailable Unavailable KENNETH, J Estrellita ANP Unavailable Unavailable KENNETH, J Estrellita ANP Unavailable Unavailable KENNETH, J Estrellita ANP Unavailable Unavailable KENNETH, J Estrellita ANP Unavailable Unavailable KENNETH, J Estrellita ANP Unavailable Unavailable KENNETH, J Estrellita ANP Unavailable Unavailable KENNETH, J Estrellita ANP Unavailable Unavailable KENNETH, J Estrellita ANP Unavailable Unavailable KENNETH, J Estrellita ANP Unavailable Unavailable KENNETH, J Estrellita ANP Unavailable Unavailable KENNETH, J Estrellita ANP Unavailable Unavailable KENNETH, J Estrellita ANP Unavailable Unavailable KENNETH, J Estrellita ANP Unavailable Unavailable KENNETH, J Estrellita ANP Unavailable Unavailable KENNETH, J Estrellita ANP Unavailable Unavailable KENNETH, J Estrellita ANP Unavailable Unavailable KENNETH, J Estrellita ANP Unavailable Unavailable KENNETH, J Estrellita ANP Unavailable Unavailable KENNETH, J Estrellita ANP Unavailable Unavailable KENNETH, J Estrellita ANP Unavailable Unavailable KENNETH, J Estrellita ANP Unavailable Unavailable KENNETH, J Estrellita ANP Unavailable Unavailable KENNETH, J Estrellita ANP Unavailable Unavailable KENNETH, J Estrellita ANP Unavailable Unavailable KENNETH, J Estrellita ANP Unavailable Unavailable KENNETH, J Estrellita ANP Unavailable Unavailable KENNETH, J Estrellita ANP Unavailable Unavailable KENNETH, J Estrellita ANP Unavailable Unavailable KENNETH, J Estrellita ANP Unavailable Unavailable KENNETH, J Estrellita ANP Unavailable Unavailable KENNETH, J Estrellita ANP Unavailable Unavailable KENNETH, J Estrellita ANP Unavailable Unavailable KENNETH, J Estrellita ANP Unavailable Unavailable KENNETH, J Estrellita ANP Unavailable Unavailable KENNETH, J Estrellita ANP Unavailable Unavailable KENNETH, J Estrellita ANP Unavailable Unavailable KENNETH, J Estrellita ANP Unavailable Unavailable KENNETH, J Estrellita ANP Unavailable Unavailable KENNETH, J Estrellita ANP Unavailable Unavailable KENNETH, J Estrellita ANP Unavailable Unavailable KENNETH, J Estrellita ANP Unavailable Unavailable KENNETH, J Estrellita ANP Unavailable Unavailable KENNETH, J Estrellita ANP Unavailable Unavailable KENNETH, J Estrellita ANP Unavailable Unavailable KENNETH, J Estrellita ANP Unavailable Unavailable [facility] Unavailable Unavailable Mazariegos, A Pricilla ABRASIVE COATING MACHINE OPERATOR Unavailable Unavailable Mazariegos, A Pricilla ABRASIVE COATING MACHINE OPERATOR Unavailable Unavailable Mazariegos, A Pricilla ABRASIVE COATING MACHINE OPERATOR Unavailable Unavailable Mazariegos, A Pricilla ABRASIVE COATING MACHINE OPERATOR Unavailable Unavailable Mazariegos, A Pricilla ABRASIVE COATING MACHINE OPERATOR Unavailable Unavailable Mazariegos, A Pricilla ABRASIVE COATING MACHINE OPERATOR Unavailable Unavailable Mazariegos, A Pricilla ABRASIVE COATING MACHINE OPERATOR Unavailable Unavailable Mazariegos, A Pricilla ABRASIVE COATING MACHINE OPERATOR Unavailable Unavailable Mazariegos, A Pricilla ABRASIVE COATING MACHINE OPERATOR Unavailable Unavailable Mazariegos, A Pricilla ABRASIVE COATING MACHINE OPERATOR Unavailable Unavailable Mazariegos, A Pricilla ABRASIVE COATING MACHINE OPERATOR Unavailable Unavailable Mazariegos, A Pricilla ABRASIVE COATING MACHINE OPERATOR Unavailable Unavailable Mazariegos, A Pricilla ABRASIVE COATING MACHINE OPERATOR Unavailable Unavailable Mazariegos, A Pricilla ABRASIVE COATING MACHINE OPERATOR Unavailable Unavailable Mazariegos, A Pricilla ABRASIVE COATING MACHINE OPERATOR Unavailable Unavailable Mazariegos, A Pricilla ABRASIVE COATING MACHINE OPERATOR Unavailable Unavailable Mazariegos, A Pricilla ABRASIVE COATING MACHINE OPERATOR Unavailable Unavailable Mazariegos, A Pricilla ABRASIVE COATING MACHINE OPERATOR Unavailable Unavailable Mazariegos, A Pricilla ABRASIVE COATING MACHINE OPERATOR Unavailable Unavailable Mazariegos, A Pricilla ABRASIVE COATING MACHINE OPERATOR Unavailable Unavailable Mazariegos, A Pricilla ABRASIVE COATING MACHINE OPERATOR Unavailable Unavailable Mazariegos, A Pricilla ABRASIVE COATING MACHINE OPERATOR Unavailable Unavailable Mazariegos, A Pricilla ABRASIVE COATING MACHINE OPERATOR Unavailable Unavailable Mazariegos, A Pricilla ABRASIVE COATING MACHINE OPERATOR Unavailable Unavailable Mazariegos, A Pricilla ABRASIVE COATING MACHINE OPERATOR Unavailable Unavailable Mazariegos, A Pricilla ABRASIVE COATING MACHINE OPERATOR Unavailable Unavailable Mazariegos, A Pricilla ABRASIVE COATING MACHINE OPERATOR Unavailable Unavailable Mazariegos, A Pricilla ABRASIVE COATING MACHINE OPERATOR Unavailable Unavailable Mazariegos, A Pricilla ABRASIVE COATING MACHINE OPERATOR Unavailable Unavailable Mazariegos, A Pricilla ABRASIVE COATING MACHINE OPERATOR Unavailable Unavailable Mazariegos, A Pricilla ABRASIVE COATING MACHINE OPERATOR Unavailable Unavailable Mazariegos, A Pricilla ABRASIVE COATING MACHINE OPERATOR Unavailable Unavailable Mazariegos, A Pricilla ABRASIVE COATING MACHINE OPERATOR Unavailable Unavailable Mazariegos, A Pricilla ABRASIVE COATING MACHINE OPERATOR Unavailable Unavailable Mazariegos, A Pricilla ABRASIVE COATING MACHINE OPERATOR Unavailable Unavailable Mazariegos, A Pricilla ABRASIVE COATING MACHINE OPERATOR Unavailable Unavailable Mazariegos, A Pricilla ABRASIVE COATING MACHINE OPERATOR Unavailable Unavailable Mazariegos, A Pricilla ABRASIVE COATING MACHINE OPERATOR Unavailable Unavailable Mazariegos, A Pricilla ABRASIVE COATING MACHINE OPERATOR Unavailable Unavailable Mazariegos, A Pricilla ABRASIVE COATING MACHINE OPERATOR Unavailable Unavailable Mazariegos, A Pricilla ABRASIVE COATING MACHINE OPERATOR Unavailable Unavailable Mazariegos, A Pricilla ABRASIVE COATING MACHINE OPERATOR Unavailable Unavailable Mazariegos, A Pricilla ABRASIVE COATING MACHINE OPERATOR Unavailable Unavailable Mazariegos, A Pricilla ABRASIVE COATING MACHINE OPERATOR Unavailable Unavailable Mazariegos, A Pricilla ABRASIVE COATING MACHINE OPERATOR Unavailable Unavailable Mazariegos, A Pricilla ABRASIVE COATING MACHINE OPERATOR Unavailable Unavailable Mazariegos, A Pricilla ABRASIVE COATING MACHINE OPERATOR Unavailable Unavailable Mazariegos, A Pricilla ABRASIVE COATING MACHINE OPERATOR Unavailable Unavailable Mazariegos, A Pricilla ABRASIVE COATING MACHINE OPERATOR Unavailable Unavailable Mazariegos, A Pricilla ABRASIVE COATING MACHINE OPERATOR Unavailable Unavailable PICKERAL JR, J VAMSHI PA-C Unavailable Unavailable PICKERAL JR, J VAMSHI PA-C Unavailable Unavailable PICKERAL JR, J VAMSHI PA-C Unavailable Unavailable PICKERAL JR, J VAMSHI PA-C Unavailable Unavailable PICKERAL JR, J VAMSHI PA-C Unavailable Unavailable PICKERAL JR, J VAMSHI PA-C Unavailable Unavailable PICKERAL JR, J VAMSHI PA-C Unavailable Unavailable PICKERAL JR, J VAMSHI PA-C Unavailable Unavailable PICKERAL JR, J VAMSHI PA-C Unavailable Unavailable PICKERAL JR, J VAMSHI PA-C Unavailable Unavailable PICKERAL JR, J VAMSHI PA-C Unavailable Unavailable PICKERAL JR, J VAMSHI PA-C Unavailable Unavailable PICKERAL JR, J VAMSHI PA-C Unavailable Unavailable PICKERAL JR, J VAMSHI PA-C Unavailable Unavailable PICKERAL JR, J VAMSHI PA-C Unavailable Unavailable PICKERAL JR, J VAMSHI PA-C Unavailable Unavailable PICKERAL JR, J VAMSHI PA-C Unavailable Unavailable PICKERAL JR, J VAMSHI PA-C Unavailable Unavailable PICKERAL JR, J VAMSHI PA-C Unavailable Unavailable PICKERAL JR, J VAMSHI PA-C Unavailable Unavailable PICKERAL JR, J VAMSHI PA-C Unavailable Unavailable PICKERAL JR, J VAMSHI PA-C Unavailable Unavailable PICKERAL JR, J VAMSHI PA-C Unavailable Unavailable PICKERAL JR, J VAMSHI PA-C Unavailable Unavailable PICKERAL JR, J VAMSHI PA-C Unavailable Unavailable PICKERAL JR, J VAMSHI PA-C Unavailable Unavailable PICKERAL JR, J VAMSHI PA-C Unavailable Unavailable Chet ACE MD Unavailable Unavailable Chet ACE MD Unavailable Unavailable Chet ACE MD Unavailable Unavailable Chet ACE MD Unavailable Unavailable Chet ACE MD Unavailable Unavailable Chet ACE MD Unavailable Unavailable Chet ACE MD Unavailable Unavailable Chet ACE MD Unavailable Unavailable Chet ACE MD Unavailable Unavailable UZLAY ACE MD Unavailable Unavailable KENNETH, J Estrellita ANP Unavailable Unavailable KENNETH, J Estrellita ANP Unavailable Unavailable KENNETH, J Estrellita ANP Unavailable Unavailable KENNETH, J Estrellita ANP Unavailable Unavailable KENNETH, J Estrellita ANP Unavailable Unavailable KENNETH, J Estrellita ANP Unavailable Unavailable KENNETH, J Estrellita ANP Unavailable Unavailable KENNETH, J Estrellita ANP Unavailable Unavailable KENNETH, J Estrellita ANP Unavailable Unavailable KENNETH, J Estrellita ANP Unavailable Unavailable KENNETH, J Estrellita ANP Unavailable Unavailable KENNETH, J Estrellita ANP Unavailable Unavailable KENNETH, J Estrellita ANP Unavailable Unavailable KENNETH, J Estrellita ANP Unavailable Unavailable KENNETH, J Estrellita ANP Unavailable Unavailable KENNETH, J Estrellita ANP Unavailable Unavailable KENNETH, J Estrellita ANP Unavailable Unavailable KENNETH, J Estrellita ANP Unavailable Unavailable KENNETH, J Estrellita ANP Unavailable Unavailable KENNETH, J Estrellita ANP Unavailable Unavailable KENNETH, J Estrellita ANP Unavailable Unavailable KENNETH, J Estrellita ANP Unavailable Unavailable KENNETH, J Estrellita ANP Unavailable Unavailable KENNETH, J Estrellita ANP Unavailable Unavailable KENNETH, J Estrellita ANP Unavailable Unavailable KENNETH, J Estrellita ANP Unavailable Unavailable KENNETH, J Estrellita ANP Unavailable Unavailable KENNETH, J Estrellita ANP Unavailable Unavailable KENNETH, J Estrellita ANP Unavailable Unavailable KENNETH, J Estrellita ANP Unavailable Unavailable KENNETH, J Estrellita ANP Unavailable Unavailable KENNETH, J Estrellita ANP Unavailable Unavailable KENNETH, J Estrellita ANP Unavailable Unavailable KENNETH, J Estrellita ANP Unavailable Unavailable KENNETH, J Estrellita ANP Unavailable Unavailable KENNETH, J Estrelilta ANP Unavailable Unavailable KENNETH, J Estrellita ANP Unavailable Unavailable KENNETH, J Estrellita ANP Unavailable Unavailable KENNETH, J Estrellita ANP Unavailable Unavailable KENNETH, J Estrellita ANP Unavailable Unavailable KENNETH, J Estrellita ANP Unavailable Unavailable KENNETH, J Estrellita ANP Unavailable Unavailable KENNETH, J Estrellita ANP Unavailable Unavailable KENNETH, J Estrellita ANP Unavailable Unavailable KENNETH, J Estrellita ANP Unavailable Unavailable KENNETH, J Estrellita ANP Unavailable Unavailable KENNETH, J Estrellita ANP Unavailable Unavailable KENNETH, J Estrellita ANP Unavailable Unavailable KENNETH, J Estrellita ANP Unavailable Unavailable KENNETH, J Estrellita ANP Unavailable Unavailable KENNETH, J Estrellita ANP Unavailable Unavailable KENNETH, J Estrellita ANP Unavailable Unavailable KENNETH, J Estrellita ANP Unavailable Unavailable KENNETH, J Estrellita ANP Unavailable Unavailable KENNETH, J Estrellita ANP Unavailable Unavailable KENNETH, J Estrellita ANP Unavailable Unavailable KENNETH, J Estrellita ANP Unavailable Unavailable KENNETH, J Estrellita ANP Unavailable Unavailable KENNETH, J Estrellita ANP Unavailable Unavailable KENNETH, J Estrellita ANP Unavailable Unavailable KENNETH, J Estrellita ANP Unavailable Unavailable KENNETH, J Estrellita ANP Unavailable Unavailable KENNETH, J Estrellita ANP Unavailable Unavailable KENNETH, J Estrellita ANP Unavailable Unavailable CHAGO, L ERIC PA Unavailable Unavailable CHAGO, L ERIC PA Unavailable Unavailable CHAGO, L ERIC PA Unavailable Unavailable CHAGO, L ERIC PA Unavailable Unavailable CHAGO, L ERIC PA Unavailable Unavailable CHAGO, L ERIC PA Unavailable Unavailable CHAGO, L ERIC PA Unavailable Unavailable CHAGO, L ERIC PA Unavailable Unavailable CHAGO, L ERIC PA Unavailable Unavailable CHAGO, L ERIC PA Unavailable Unavailable CHAGO, L ERIC PA Unavailable Unavailable CHAGO, L ERIC PA Unavailable Unavailable CHAGO, L ERIC PA Unavailable Unavailable CHAGO, L ERIC PA Unavailable Unavailable CHAGO, L ERIC PA Unavailable Unavailable CHAGO, L ERIC PA Unavailable Unavailable CHAGO, L ERIC PA Unavailable Unavailable CHAGO, L ERIC PA Unavailable Unavailable CHAGO, L ERIC PA Unavailable Unavailable CHAGO, L ERIC PA Unavailable Unavailable CHAGO, L ERIC PA Unavailable Unavailable CHAGO, L ERIC PA Unavailable Unavailable Chet HONG MD Unavailable Unavailable Chet HONG MD Unavailable Unavailable Chet HONG MD Unavailable Unavailable Chet HNOG MD Unavailable Unavailable Chet HONG MD Unavailable Unavailable Chet HONG MD Unavailable Unavailable Chet HONG MD Unavailable Unavailable Chet HONG MD Unavailable Unavailable Chet HONG MD Unavailable Unavailable Chet HONG MD Unavailable Unavailable Chet HONG MD Unavailable Unavailable Chet HONG MD Unavailable Unavailable Chet HONG MD Unavailable Unavailable Chet HONG MD Unavailable Unavailable Chet HONG MD Unavailable Unavailable Chet HONG MD Unavailable Unavailable Chet HONG MD Unavailable Unavailable Chet HONG MD Unavailable Unavailable Chet HONG MD Unavailable Unavailable Chet HONG MD Unavailable Unavailable Chet HONG MD Unavailable Unavailable Chet HONG MD Unavailable Unavailable Chet HONG MD Unavailable Unavailable Chet HONG MD Unavailable Unavailable Chet HONG MD Unavailable Unavailable Chet HONG MD Unavailable Unavailable Chet HONG MD Unavailable Unavailable Chet HONG MD Unavailable Unavailable Chet HONG MD Unavailable Unavailable Chet HONG MD Unavailable Unavailable Chet HONG MD Unavailable Unavailable Chet HONG MD Unavailable Unavailable Chet HONG MD Unavailable Unavailable Chet HONG MD Unavailable Unavailable Chet HONG MD Unavailable Unavailable Chet HONG MD Unavailable Unavailable Chet HONG MD Unavailable Unavailable Chet HONG MD Unavailable Unavailable Chet HONG MD Unavailable Unavailable Chet HONG MD Unavailable Unavailable Chet HONG MD Unavailable Unavailable Chet HONG MD Unavailable Unavailable Chet HONG MD Unavailable Unavailable Chet HONG MD Unavailable Unavailable Chet HONG MD Unavailable Unavailable Chet HONG MD Unavailable Unavailable Chet HONG MD Unavailable Unavailable Chet HONG MD Unavailable Unavailable Chet HONG MD Unavailable Unavailable Chet HONG MD Unavailable Unavailable Chet HONG MD Unavailable Unavailable Chet HONG MD Unavailable Unavailable Chet HONG MD Unavailable Unavailable Chet HONG MD Unavailable Unavailable Chet HONG MD Unavailable Unavailable Chet HONG MD Unavailable Unavailable Chet HONG MD Unavailable Unavailable Chet HONG MD Unavailable Unavailable Chet HONG MD Unavailable Unavailable Chet HONG MD Unavailable Unavailable Chet HONG MD Unavailable Unavailable Chet HONG MD Unavailable Unavailable Chet HONG MD Unavailable Unavailable Chet HONG MD Unavailable Unavailable Chet HONG MD Unavailable Unavailable Chet HONG MD Unavailable Unavailable Chet HONG MD Unavailable Unavailable Chet HONG MD Unavailable Unavailable Chet HONG MD Unavailable Unavailable Chet HONG MD Unavailable Unavailable Chet HONG MD Unavailable Unavailable Chet HONG MD Unavailable Unavailable Chet HONG MD Unavailable Unavailable HONG, Chet MENDOZA MD Unavailable Unavailable HONG, Chet MENDOZA MD Unavailable Unavailable HONG, Chet MENDOZA MD Unavailable Unavailable HONG, Chet MENDOZA MD Unavailable Unavailable HONG, Chet MENDOZA MD Unavailable Unavailable HONG, Chet MENDOZA MD Unavailable Unavailable HONG, Chet MENDOZA MD Unavailable Unavailable HONG, Chet MENDOZA MD Unavailable Unavailable HONG, Chet MENDOZA MD Unavailable Unavailable HONG, Chet MENDOZA MD Unavailable Unavailable HONG, Chet MENDOZA MD Unavailable Unavailable HONG, Chet MENDOZA MD Unavailable Unavailable HONG, Chet MENDOZA MD Unavailable Unavailable HONG, Chet MENDOZA MD Unavailable Unavailable HONG, Chet MENDOZA MD Unavailable Unavailable HONG, Chet MENDOZA MD Unavailable Unavailable HONG, Chet MENDOZA MD Unavailable Unavailable HONG, Chet MENDOZA MD Unavailable Unavailable HONG, Chet MENDOZA MD Unavailable Unavailable HONG, Chet MENDOZA MD Unavailable Unavailable HONG, Chet MENDOZA MD Unavailable Unavailable HONG, Chet MENDOZA MD Unavailable Unavailable HONG, Chet MENDOZA MD Unavailable Unavailable HONG, Chet MENDOZA MD Unavailable Unavailable Karina, A Shawna CHICKEN CUTTER Unavailable Unavailable Karina, A Shawna CHICKEN CUTTER Unavailable Unavailable Karina, A Shawna CHICKEN CUTTER Unavailable Unavailable Karina, A Shawna CHICKEN CUTTER Unavailable Unavailable Karina, A Shawna CHICKEN CUTTER Unavailable Unavailable Karina, A Shawna CHICKEN CUTTER Unavailable Unavailable Karina, A Shawna CHICKEN CUTTER Unavailable Unavailable Karina, A Shawna CHICKEN CUTTER Unavailable Unavailable Karina, A Shawna CHICKEN CUTTER Unavailable Unavailable Karina, A Shawna CHICKEN CUTTER Unavailable Unavailable Karina, A Shawna CHICKEN CUTTER Unavailable Unavailable Karina, A Shawna CHICKEN CUTTER Unavailable Unavailable Karina, A Shawna CHICKEN CUTTER Unavailable Unavailable Karina, A Shawna CHICKEN CUTTER Unavailable Unavailable Karina, A Shawna CHICKEN CUTTER Unavailable Unavailable Karina, A Shawna CHICKEN CUTTER Unavailable Unavailable Karina, A Shawna CHICKEN CUTTER Unavailable Unavailable Karina, A Shawna CHICKEN CUTTER Unavailable Unavailable Karina, A Shawna CHICKEN CUTTER Unavailable Unavailable Karina, A Shawna CHICKEN CUTTER Unavailable Unavailable Karina, A Shawna CHICKEN CUTTER Unavailable Unavailable Karina, A Shawna CHICKEN CUTTER Unavailable Unavailable Karina, A Shawna CHICKEN CUTTER Unavailable Unavailable Karina, A Shawna CHICKEN CUTTER Unavailable Unavailable Karina, A Shawna CHICKEN CUTTER Unavailable Unavailable Karina, A Shawna CHICKEN CUTTER Unavailable Unavailable Karina, A Shawna CHICKEN CUTTER Unavailable Unavailable Karina, A Shawna CHICKEN CUTTER Unavailable Unavailable Karina, A Shawna CHICKEN CUTTER Unavailable Unavailable Karina, A Shawna CHICKEN CUTTER Unavailable Unavailable Karina, A Shawna CHICKEN CUTTER Unavailable Unavailable Karina, A Shawna CHICKEN CUTTER Unavailable Unavailable Karina, A Shawna CHICKEN CUTTER Unavailable Unavailable Karina, A Shawna CHICKEN CUTTER Unavailable Unavailable Karina, A Shawna CHICKEN CUTTER Unavailable Unavailable Karina, A Shawna CHICKEN CUTTER Unavailable Unavailable Karina, A Shawna CHICKEN CUTTER Unavailable Unavailable Karina, A Shawna CHICKEN CUTTER Unavailable Unavailable Karina, A Shawna CHICKEN CUTTER Unavailable Unavailable Karina, A Shawna CHICKEN CUTTER Unavailable Unavailable Karina, A Shawna CHICKEN CUTTER Unavailable Unavailable Karina, A Shawna CHICKEN CUTTER Unavailable Unavailable Karina, A Shawna CHICKEN CUTTER Unavailable Unavailable Karina, A Shawna CHICKEN CUTTER Unavailable Unavailable Karina, A Shawna CHICKEN CUTTER Unavailable Unavailable Karina, A Shanwa CHICKEN CUTTER Unavailable Unavailable Karina, A Shawna CHICKEN CUTTER Unavailable Unavailable Karina, A Shawna CHICKEN CUTTER Unavailable Unavailable Karina, A Shawna CHICKEN CUTTER Unavailable Unavailable Karina, A Shawna CHICKEN CUTTER Unavailable Unavailable Karina, A Shawna CHICKEN CUTTER Unavailable Unavailable Karina, A Shawna CHICKEN CUTTER Unavailable Unavailable Re-disclosure Warning The records that you are about to access may contain information from federally-assisted alcohol or drug abuse programs. If such information is present, then the following federally mandated warning applies: This information has been disclosed to you from records protected by federal confidentiality rules (42 CFR part 2). The federal rules prohibit you from making any further disclosure of this information unless further disclosure is expressly permitted by the written consent of the person to whom it pertains or as otherwise permitted by 42 CFR part 2. A general authorization for the release of medical or other information is NOT sufficient for this purpose. The Federal rules restrict any use of the information to criminally investigate or prosecute any alcohol or drug abuse patient.The records that you are about to access may contain highly sensitive health information, the redisclosure of which is protected by Article 27-F of the [facility] Public Health law. If you continue you may have access to information: Regarding HIV / AIDS; Provided by facilities licensed or operated by the [facility] Office of Mental Health; or Provided by the [facility] Office for People With Developmental Disabilities. If such information is present, then the following [facility] mandated warning applies: This information has been disclosed to you from confidential records which are protected by state law. State law prohibits you from making any further disclosure of this information without the specific written consent of the person to whom it pertains, or as otherwise permitted by law. Any unauthorized further disclosure in violation of state law may result in a fine or [place] [facility] sentence or both. A general authorization for the release of medical or other information is NOT sufficient authorization for further disc losure. Family History Family Member Name Family Member Gender Family Member Status Date o f Status Description Data Source(s) Unknown Unknown Problem [facility] ([facility]) mother maternal aunt Encounters Encounter Providers Location Date Indications Data Source(s ) Outpatient Attender: Estrellita Garcia 01:20:00 PM EDT [facility] ([facility] ) Outpatient Attender: Estrellita Garcia 09:20:00 AM EDT [facility] ([facility] ) Outpatient Attender: Shalom York MD Physical Therapy 12/2020 09:00:00 AM EDT [facility] ([facility]) Outpatient Attender: Shalom York MD 02/2021 09:51:00 AM EDT - 04/16/2021 10:09:00 AM [facility] Patient discharged. Outpatient Attender: Estrellita Garcia 01:00:00 PM EDT [facility] ([facility] ) Outpatient Attender: Shalom York MD 02/18 10:50:00 AM EDT - 03/19/2021 11:00:00 AM [facility] Patient discharged. Outpatient Attender: Shalom York MD Physical Therapy 10/2021 02:45:00 PM EDT [facility] ([facility]) Attender: KELLY HONG MDReferrer: Estrellita GRIER 02/11/2021 08:21:03 PM EDT [facility] Attender: KELLY HONG MDReferrer: Estrellita GRIRE 02/11/2021 08:21:03 PM EDT [facility] Attender: KELLY OTEROO MDReferrer: Estrellita GRIER 02/11/2021 08:21:03 PM EDT [facility] Outpatient Attender: Pricilla Pelayo/ [facility] 02/11/2021 01:30:00 PM EDT [facility] ([facility]) Outpatient Attender: Estrellita Garcia 09:00:00 AM EST [facility] ([facility] ) Outpatient Attender: VAMSHI Garcia 0 11/26/2020 12:20:00 PM EST [facility] ([facility] ) Outpatient Attender: Shawna Collins FNPReferrer: Estrellita GRIER EMERGENCY ROOM-LAB REF 11/16/2020 01:58:00 PM EST - 11/16/2020 01:58:00 PM [facility] Outpatient Attender: Shawna RONQUILLO 11/16/2020 11:00 :00 AM [facility] Outpatient [facility] 11/16/2020 12:00:00 AM EST eCW1 ([facility]) Outpatient Attender: Estrellita Garcia 11/2019 09:15:00 AM EST [facility] ([facility] ) Emergency Attender: ZULAY Gilbert tender: ZULAY ACEReferrer: Estrellita GRIER EMERGENCY ROOM-ER 10/10/2020 11:15:00 PM EST - 10/11/2020 12:28:00 AM [facility] Patient discharged. Outpatient Attender: ZULAY Gilbert tender: ZULAY ACE MDConsultant: [facility] [id number] 10/10/2020 11:10:00 PM EST [facility] Emergency Attender: ERIC ANDERS PAReferrer: Marissa GRIER EMERGENCY ROOM-ER 01/28/2020 02:38:00 AM EDT - 01/28/2020 03:08:00 AM EDT [facility] Patient discharged. Immunizations Vaccine Date Status Description Data Source(s) Influenza, injectable, MDCK, preservative free, sunil valent 08/23/2021 01:38:00 PM EDT completed [facility] ([facility]) COVID-19 VACCINE Moderna 02/18/2021 12:00:00 AM EDT completed [facility] Vaccine Series Complete: YESThis Data wa s Submitted to [facility]. COVID-19 VACCINE Moderna 01/21/2021 12:00:00 AM EST completed [facility] Vaccine Series Complete: NOThis Data was Submitted to [facility]. Tdap 11/26/2020 12:43:00 PM EST completed M [facility]ENT ([facility]) Medications Medication Brand Name Start Date Product Form Dose Route Admi nistrative Instructions Pharmacy Instructions Status Indications Reaction Description Data Source(s) Immunization Adminstration,1 Vaccine/Toxoid 08/23/2021 12:00 :00 AM EDT completed [facility] Medication administered onsite Lisinopril 20 MG Oral Tablet Lisinopril 08/02/2021 12:00:00 AM EDT ORAL active [facility] 0.5 % 07/17/2021 12:00:00 AM EDT drops 5 INSTILL ONE DROP FOUR TIMES A DAY IN THE RIGHT EYE START 3 DAYS PRIOR TO SURGERY INSTILL ONE DROP FOUR TIMES A DAY IN THE RIGHT EYE START 3 DAYS PRIOR TO SURGERY SOLD: 08/02/2021 [facility] 0.6 % 07/17/2021 12:00:00 AM EDT drops,suspension 5 INSTILL ONE DROP FOUR TIMES A DAY IN THE RIGHT EYE START 3 DAYS PRIOR TO SURGERY INSTILL ONE DROP FOUR TIMES A DAY IN THE RIGHT EYE START 3 DAYS PRIOR TO SURGERY SOLD: 08/02/2021 [facility] 0.5 % 07/17/2021 12:00:00 AM EDT drops 5 INSTILL ONE DROP FOUR TIMES A DAY IN THE RIGHT EYE START 3 DAYS PRIOR TO SURGERY INSTILL ONE DROP FOUR TIMES A DAY IN THE RIGHT EYE START 3 DAYS PRIOR TO SURGERY SOLD: 09/10/2021 [facility] 0.6 % 07/17/2021 12:00:00 AM EDT drops,suspension 5 INSTILL ONE DROP FOUR TIMES A DAY IN THE RIGHT EYE START 3 DAYS PRIOR TO SURGERY INSTILL ONE DROP FOUR TIMES A DAY IN THE RIGHT EYE START 3 DAYS PRIOR TO SURGERY SOLD: 09/10/2021 [facility] 1 % 07/17/2021 12:00:00 AM EDT drops,suspension 10 INSTILL ONE DROP FOUR TIMES A DAY IN THE RIGHT EYE START AFTER SURGERY INSTILL ONE DROP FOUR TIMES A DAY IN THE RIGHT EYE START AFTER SURGERY SOLD: 08/02/2021 [facility] 200 mg 03/24/2021 12:00:00 AM EDT capsule 30 TAKE ONE CAPSULE BY MOUTH EVERY DAY WITH FOOD TAKE ONE CAPSULE BY MOUTH EVERY DAY WITH FOOD SOLD: 05/12/2021 [facility] 200 mg 03/24/2021 12:00:00 AM EDT capsule 30 TAKE ONE CAPSULE BY MOUTH EVERY DAY WITH FOOD TAKE ONE CAPSULE BY MOUTH EVERY DAY WITH FOOD SOLD: 03/24/2021 [facility] celecoxib 200 MG Oral Capsule [Celebrex] Celebrex 03/23/2021 12 :00:00 AM EDT ORAL active [facility] ([facility]) 100 mg 03/02/2021 12:00:00 AM EDT capsule 30 TAKE ONE CAPSULE BY MOUTH EVERY DAY WITH FOOD TAKE ONE CAPSULE BY MOUTH EVERY DAY WITH FOOD SOLD: 03/02/2021 [facility] celecoxib 100 MG Oral Capsule [Celebrex] Celebrex 03/01/2021 12 :00:00 AM EDT ORAL active [facility] ([facility]) Lisinopril 10 MG Oral Tablet Lisinopril 01/04/2021 12:00:00 AM EST ORAL active [facility] ([facility]) Immunization Adminstration,1 Vaccine/Toxoid 11/26/2020 12:00 :00 AM EST completed [facility] ([facility]) Medication administered onsite Amoxicillin 875 MG / Clavulanate 125 MG Oral Tablet Am oxicillin/Clavulanate Potassium 11/26/2020 12:00:00 AM EST ORAL completed [facility] ([facility]) 875-125 mg 11/26/2020 12:00:00 AM EST tablet 14 TAKE ONE TABLET BY MOUTH TWICE A DAY FOR 7 DAYS TAKE ONE TABLET BY MOUTH TWICE A DAY FOR 7 DAYS SOLD: 11/26/2020 [facility] Azelastine-Fluticasone 137-50 MCG/ACT Azelastine-Fluticasone 137-50 MCG/ACT 11/16/2020 12:00:00 AM EST 1.0 {spray_in_each_nostril} active Azelastine-Fluticasone 137-50 MCG/ACT eCW1 ([facility]) 500 mg 10/11/2020 12:00:00 AM EST tablet 10 TAKE ONE TABLET BY MOUTH TWICE A DAY TAKE ONE TABLET BY MOUTH TWICE A DAY SOLD: 10/11/2020 [facility] Insurance Providers Payer name Policy type / Coverage type Policy ID Covered republican ID Covered republican's relationship to dickey Policy Dickey Plan Information BS [place] Trad/MX Commercial [id number] Self [facility] Trad/MX Medigap Part B [id number] Self [id number] [employer]/Umr (Old) Medigap Part B [id number] Family Dependent [id number] [employer] Ppo Commercial [id number] Family Dependent [employer]/Umr (Old) Medigap Part B [id number] Family Dependent [id number] Umr [employer] Ppo Commercial [id number] Family Dependent [id number] [employer]/Umr (Old) Medigap Part B [id number] Family Dependent [id number] [employer]/Umr (Old) Medigap Part B [id number] Family Dependent [id number] [employer]/Umr (Old) Medigap Part B [id number] Family Dependent [id number] [employer] Ppo Commercial [id number] Family Dependent [id number] [employer] Ppo Commercial [id number] Family Dependent [id number] [employer] Ppo Commercial [id number] Family Dependent [id number] POMCO [id number] Spo [id number] UMR [id number] SPO [id number] [employer] [id number] 1 [id number] UMR [id number] SPO [id number] Umr Care Management [id number] 1 [id number] Umr (New [employer]) Commercial [id number] Family Dependent [id number] 01 Umr/Uhc/[employer]om[employer] Health Maintenance Organization (HMO) [id number] Family Dependent [id number] Ghi/[facility] Medigap Part B [id number] Family Dependent [id number] Umr Commercial [id number] Family Dependent [id number] UMR O UNAVAILABLE P UNAVAILA BLE [employer] Blue Ppo Health Maintenance Organization (HMO) [id number] Self [id number] i/[employer] Medigap Part B [id number] Family Dependent [id number] [employer] Commercial [id number] Family Dependent [id number] Umr/Uhc/[employer]om[employer] Health Maintenance Organization (HMO) [id number] Family Dependent [id number] POMCO [id number] HU2 [id number] Umr/Uhc/[employer]om[employer] Health Maintenance Organization (HMO) [id number] Family Dependent [id number] Ghi/[employer] Medigap Part B [id number] Family Dependent [id number] [employer] Commercial [id number] Family Dependent [id number] [facility] [id number] HU2 [id number] Ghi/[employer] Medigap Part B [id number] Family Dependent [id number] [employer] Commercial [id number] Family Dependent [id number] [employer]OM[employer] PPO O [id number] P [id number] [employer] Commercial [id number] Family Dependent [id number] [employer] E[employer]IRE [id number] S [id number] [place] Commercial [id number] Family Dependent [id number] GHI [id number] UMR [id number] SPO [id number] [employer] Commercial [id number] Family Dependent UMR O [id number] 01 [id number] P [id number] 01 Ghi/[employer] Medigap Part B [id number] Family Dependent [place] Medigap Part B [id number] Self Ppo SELF PAY ONLY [id number] SP [id number] [employer] Blue Ppo Health Maintenance Organization (HMO) [id number] Self Ghi/[employer] Medigap Part B [id number] Family Dependent UMR [facility] [id number] HU2 [id number] Ghi/[employer] Ppo/Epo Commercial [id number] Family Depende nt POMCO [id number] HU2 [id number] Problems, Conditions, and Diagnoses Code Display Name Description Problem Type Effective Dates Data Source(s) M17.12 Unilateral primary osteoarthritis, left knee UNILATERAL PRIMARY OSTEOARTHRITIS, LEFT Diagnosis 03[facility] Pain in left knee PAIN IN LEFT KNEE Diagnosis 03/23 09:30:00 AM [facility] M19.90 Unspecified osteoarthritis, unspecified site UNSPECIFIED OSTEOARTHRITIS, UNSPECIFIED Diagnosis 03/04/2021 09:00:00 AM [facility] R05 Cough COUGH Diagnosis 11/16/2020 01:58:00 PM [facility] U07.1 COVID-19 COVID-19 Diagnosis 11/16/2020 01:58:00 PM [facility] J06.9 Acute upper respiratory infection, unspe cified ACUTE UPPER RESPIRATORY INFECTION, UNSPECIFIED Diagnosis 11/16/2020 11:00:00 AM [facility] Z87.891 Personal history of nicotine dependence PERSONAL HISTORY OF NICOTINE DEPENDENCE Diagnosis 10/10/2020 11:15:00 PM EST [facility] 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 O THER FPC (CURRENT) DRUG THERAPY Diagnosis 10/10/2020 11:15:00 PM EST [facility] I10 Essential (primary) hypertension ESSENTIAL (PRIMARY) H YPERTENSION Diagnosis 10/10/2020 11:15:00 PM [facility] N30.01 Acute cystitis with hematuria ACUTE CYSTITIS WITH DANIELA TURIA Diagnosis 10/10/2020 11:15:00 PM [facility] R30.0 Dysuria DYSURIA Diagnosis 10/10/2020 11:15:00 PM [facility] [id number] Essential hypertension Essential hypertension Problem 03/01/2021 12:00:00 AM EDT [facility] Surgeries/Procedures Procedure Description Date Indications Data Source(s) OFFICE OUTPATIENT VISIT 10 MINUTES 08/11/2021 12:00:00 AM EDT [facility] ([facility]) EXC B9 LES MRGN XCP SK TG T/A/L 3.1-4.0 CM 08/11/2021 12:00:00 AM EDT [facility] ([facility]) OFFICE OUTPATIENT VISIT 25 MINUTES 07/07/2021 12:00:00 AM EDT [facility] ([facility]) OFFICE OUTPATIENT VISIT 10 MINUTES 04/21/2021 12:00:00 AM EDT [facility] ([facility]) OFFICE OUTPATIENT VISIT 15 MINUTES 03/12/2021 12:00:00 AM EDT [facility] ([facility]) RADIOLOGIC EXAM KNEE COMPLETE 4/MORE VIEWS 03/01/2021 12:00:00 AM EDT [facility] ([facility]) RADIOLOGIC EXAM KNEE COMPLETE 4/MORE VIEWS 03/01/2021 12:00:00 AM EDT [facility] ([facility]) OFFICE OUTPATIENT NEW 45 MINUTES 03/01/2021 12:00:00 A EDT [facility] ([facility]) LISA POST-VOIDING RESIDUAL URINE&/BLDR CAP 02/11/2021 12:00:00 AM EDT [facility] ([facility] [place]) Mammogram 11/10/2020 12:00:00 AM EST [facility]ENT ([facility]) Results ID Date Data Source [id number] 09/08/2021 11:35:00 AM EDT [facility] Name Value Range Interpretation Code Description Data Donna rce(s) Supporting Document(s) SARS-CoV-2 (COVID-19) RNA [Presence] in Respiratory specimen by JUANA with probe detection Not Detected [facility] This lab was ordered by [facility] and reported by [employer] ID Date Data Source [id number] 08/11/2021 02:26:00 PM EDT [facility] ([facility]) Name Value Range Interpretation Code Description Data Donna rce(s) Supporting Document(s) [facility] Laboratory test result [facility] ([facility]) RESULTS DIAGNOSIS DIAGNOSIS: LEFT ANTERIOR LEG- PRURIGO NODULARIS RESULTS SIGNATURE Carlito Le MD Electronic Signature: 17 AUG 2021 01:19 PM CLINICAL INFORMATION CLINICAL INFORMATION DERMATOFIBROMA SPECIMEN DATA GROSS DESCRIPTION Received in 10% buffered formalin is an excision of skin measuring [id number]. There is a central lesion of a [...] vessels in the superficial dermis. CPT Codes 93354 The CPT codes provided are for information purposes only, and are based on AMA guidelines without regard to specific payor requirements. END OF REPORT FINAL REPORT-ACC FINAL [facility],[address] [place] [address],[place] [address]. [phone]. [phone]. Tool Design Drafter: Kory Sarmiento MD [facility] [id number], [place] [id number], [place] [id number] Laboratory test finding (navigational concept) Laboratory test result [facility] ([facility]) ID Date Data Source [id number] 08/11/2021 02:11:00 PM EDT [facility] ([facility] Name Value Range Interpretation Code Description Data Donna rce(s) Supporting Document(s) Urea nitrogen [Mass/volume] in Serum or Plasma 15 mg/dL 7-18 [facility] ([facility]) Glucose [Mass/volume] in Serum or Plasma 110 mg/dL 74-99 [facility] ([facility]) 100-125 mg/dL PRE-DIABETES/FASTING >126 mg/dL DIABETES/FASTING Creatinine 1.0 mg/dL 0.6-1.3 [facility]) Potassium [Moles/volume] in Serum or Plasma 4.1 meq/L 3.5-5.1 [facility] Sodium [Moles/volume] in Serum or Plasma 143 meq/L 136-145 [facility]) Chloride [Moles/volume] in Serum or Plasma 108 meq/L 98-107 [facility] Calcium [Mass/volume] in Serum or Plasma 9.2 mg/dL 8.5-10.1 [facility] Carbon dioxide, total [Moles/volume] in Serum or Plasma 31 meq/L 21 -32 [facility]) Glomerular filtration rate/1.73 sq M pre dicted among non-blacks [Volume Rate/Area] in Serum or Plasma by Creatinine-based formula (MDRD) 57 mL/min [facility]) Glomerular filtration rate/1.73 sq M pre dicted among blacks [Volume Rate/Area] in Serum or Plasma by Creatinine-based formula (MDRD) Laboratory test result [facility] ([facility]) <content>CHRONIC KIDNEY DISEASE STAGING PER NKF</content>
<content></content>
<content>STAGE I & II GFR >= 60 NORMAL TO MILDLY DECREASED</content>
<content>STAGE III GFR 30-59 MODERATELY DECREASED</content>
<content>STAGE IV GFR 15-29 SEVERELY DECREASED</content>
<content>STAGE V GFR <15 VERY LITTLE GFR LEFT</content>
<content>ESRD GFR <15 ON HAMMER RUNNER</content>
<content></content> ID Date Data Source [id number] 08/11/2021 09:15:00 AM EDT [facility] Name Value Range Interpretation Code Description Data Donna rce(s) Supporting Document(s) SARS-CoV-2 (COVID-19) RNA [Presence] in Respiratory specimen by JUANA with probe detection Not Detected [facility] This lab was ordered by [facility] and reported by [employer] ID Date Data Source [id number] 07/07/2021 09:58:00 AM [facility] Name Value Range Interpretation Code Description Data Donna rce(s) Supporting Document(s) Triiodothyronine (T3) Free [Mass/volume] in Serum or Plasma 3.4 pg/ mL 2.2-4.0 [facility] ([facility]) ID Date Data Source [id number] 07/07/2021 09:56:00 AM EDT [facility] ([facility]) Name Value Range Interpretation Code Description Data Donna rce(s) Supporting Document(s) Thyroxine (T4) free [Mass/volume] in Serum or Plasma 0.84 ng/dL 0.76- 1.46 [facility] ([facility]) ID Date Data Source [id number] 07/07/2021 09:56:00 AM EDT [facility] ([facility]) Name Value Range Interpretation Code Description Data Donna rce(s) Supporting Document(s) Thyrotropin [Units/volume] in Serum or Plasma by Detec tion limit <= 0.05 mIU/L 1.58 uIU/mL 0.36-3.74 [facility] ID Date Data Source [id number] 07/07/2021 09:56:00 AM EDT [facility] ([facility]) Name Value Range Interpretation Code Description Data Donna rce(s) Supporting Document(s) Triglyceride [Mass/volume] in Serum or Plasma 55 mg/dL 30-150 [facility] ([facility]) Cholesterol [Mass/volume] in Serum or Plasma 197 mg/dL 131-200 [facility] ([facility]) Cholesterol in HDL [Mass/volume] in Serum or Plasma 65 mg/dL 35-60 [facility] ([facility]) Cholesterol in LDL [Mass/volume] in Serum or Plasma by calcu lation 121 CALC 50-159 [facility] ([facility] ID Date Data Source [id number] 07/07/2021 09:56:00 AM EDT [facility] ([facility]) Name Value Range Interpretation Code Description Data Donna rce(s) Supporting Document(s) Urea nitrogen [Mass/volume] in Serum or Plasma 17 mg/dL 7-18 [facility] ([facility]) Glucose [Mass/volume] in Serum or Plasma 91 mg/dL 74-99 [facility] ([facility]) 100-125 mg/dL PRE-DIABETES/FASTING >126 mg/dL DIABETES/FASTING Creatinine 0.9 mg/dL 0.6-1.3 [facility] ([facility]) Potassium [Moles/volume] in Serum or Plasma 4.3 meq/L 3.5-5.1 [facility] ([facility]) Sodium [Moles/volume] in Serum or Plasma 139 meq/L 136-145 [facility] ([facility]) Chloride [Moles/volume] in Serum or Plasma 104 meq/L 98-107 [facility] ([facility]) Calcium [Mass/volume] in Serum or Plasma 9.2 mg/dL 8.5-10.1 [facility] ([facility]) Carbon dioxide, total [Moles/volume] in Serum or Plasma 31 meq/L 21 -32 [facility] ([facility]) Total Bilirubin 0.3 mg/dL 0.2-1.0 [facility] ([facility]) Alkaline phosphatase isoenzyme [Units/volume] in Serum or Pl asma 64 mg/dL 46-116 [facility] ([facility]) Albumin [Mass/volume] in Serum or Plasma 4.1 g/dL 3.4-5.0 [facility] ([facility]) Alanine aminotransferase [Enzymatic activity/volume] in Seru m or Plasma 36 U/L 12-78 [facility] ([facility]) Aspartate aminotransferase [Enzymatic activity/volume] in Serum or Plasma 24 U/L 15-37 [facility] ([facility] ) Glomerular filtration rate/1.73 sq M pre dicted among non-blacks [Volume Rate/Area] in Serum or Plasma by Creatinine-based formula (MDRD) Laboratory test result [facility] Proteinase 3 Ab [Units/volume] in Serum 7.3 g/dL 6.4-8.2 [facility] ([facility]) A/G Ratio 1.28 CALC 1.00-1.90 [facility] Glomerular filtration rate/1.73 sq M pre dicted among blacks [Volume Rate/Area] in Serum or Plasma by Creatinine-based formula (MDRD) Laboratory test result [facility] ([facility]) <content>CHRONIC KIDNEY DISEASE STAGING PER NKF</content>
<content></content>
<content>STAGE I & II GFR >= 60 NORMAL TO MILDLY DECREASED</content>
<content>STAGE III GFR 30-59 MODERATELY DECREASED</content>
<content>STAGE IV GFR 15-29 SEVERELY DECREASED</content>
<content>STAGE V GFR <15 VERY LITTLE GFR LEFT</content>
<content>ESRD GFR <15 ON [facility]NER</content>
<content></content> ID Date Data Source [id number] 07/07/2021 09:56:00 AM EDT [facility] ([facility]) Name Value Range Interpretation Code Description Data Donna rce(s) Supporting Document(s) Erythrocytes [#/volume] in Blood by Automated count 4.62 x10*6/UL 4.2 0-6.30 [facility]) Leukocytes [#/volume] in Blood by Automated count 5.2 x10*3/UL 4.1-10 .9 [facility] Hemoglobin [Mass/volume] in Blood 14.4 g/dL 12.0-18.0 [facility] ([facility]) Hematocrit [Volume Fraction] of Blood by Automated count 42.5 % 3 7.0-51.0 [facility] ([facility]) MCV 91.9 fL 80.0-97.0 [facility]) MCH 31.2 pg 26.0-32.0 [facility] ([facility]) Erythrocyte distribution width [Ratio] by Automated count 12.8 % 11.6-13.7 [facility] ([facility]) MCHC 33.9 g/dL 31.0-38.0 [facility] Platelets [#/volume] in Blood by Automated count 203 x10*3/UL 140-440 [facility] MPV 8.2 FL 7.8-11.0 [facility]) Lymph % 33.7 % 10.0-58.5 [facility] Neut % 59.1 % 37.0-92.0 [facility]) Mid % 7.2 % 1.7-9.3 [facility] Lymph # 1.7 x10*3/UL 0.6-4.1 [facility] ([facility]) Neut # 3.1 x10*3/UL 2.0-7.8 [facility] ([facility]) Mid # 0.4 x10*3/UL 0.1-0.6 [facility] ([facility]) ID Date Data Source [id number] 03/12/2021 01:29:00 PM EDT [facility] ([facility]) Name Value Range Interpretation Code Description Data Donna rce(s) Supporting Document(s) Thyrotropin [Units/volume] in Serum or Plasma by Detec tion limit <= 0.05 mIU/L 1.26 uIU/mL 0.36-3.74 [facility] ([facility] ) ID Date Data Source [id number] 02/17/2021 01:05:00 PM EDT [facility] ([facility]) Name Value Range Interpretation Code Description Data Donna rce(s) Supporting Document(s) Alkaline phosphatase isoenzyme [Units/volume] in Serum or Pl asma 65 mg/dL 46-116 [facility] ([facility]) Total Bilirubin 0.4 mg/dL 0.2-1.0 [facility] ([facility]) Aspartate aminotransferase [Enzymatic activity/volume] in Serum or Plasma 25 U/L 15-37 [facility] ([facility] ) Alanine aminotransferase [Enzymatic activity/volume] in Seru m or Plasma 39 U/L 12-78 [facility] ([facility]) Direct Bilirubin 0.1 mg/dL 0.0-0.2 [facility] ([facility]) Albumin [Mass/volume] in Serum or Plasma 4.4 g/dL 3.4-5.0 [facility] ([facility]) Proteinase 3 Ab [Units/volume] in Serum 7.8 g/dL 6.4-8.2 [facility] ([facility]) A/G Ratio 1.29 CALC 1.00-1.90 [facility]) ID Date Data Source [id number] 02/11/2021 01:37:00 PM EDT [facility] ([facility] [place]) Name Value Range Interpretation Code Description Data Donna rce(s) Supporting Document(s) Glucose [Presence] in Urine Laboratory test result [facility] ([facility]) Protein [Presence] in Urine by Test strip Laboratory test result [facility] ([facility]) Ua Nitrite Laboratory test result [facility] ([facility]) Blood [Presence] in Urine by Visual Laboratory test result [facility] ([facility]) Ua Leuko Laboratory test result [facility] ([facility]) Ketones [Presence] in Urine by Test strip Laboratory test result [facility] ([facility]) Color of Urine Laboratory test result [facility] ([facility]) Clarity of Urine Laboratory test result [facility] ([facility]) Bilirubin.total [Presence] in Urine by Test strip Laboratory test res ult [facility]ENT ([facility]) Ua Specific [place] 1.010 1.003-1.030 MEDE NT ([facility]) pH of Urine by Test strip 5.0 5.0-7.5 [facility] ([facility]) Urobilinogen [Mass/volume] in Urine by Test strip 0.2 E.U./dL 0.0-1.0 [facility] ([facility]) ID Date Data Source [id number] 02/11/2021 11:00:00 AM EDT [facility] Name Value Range Interpretation Code Description Data Donna rce(s) Supporting Document(s) Follow Up [facility] JKBUWo9bIjZDSwCkLUWsQvzTAPwgXQucNYIaZ1V2QLyeIn3ELMbsztLrTNCwIl3+SAMqSJ4gso2xTBVg gMy [file] IGSnAMWR9P02fqIFt/oD8ChMqzxCozCjw2Pi+e9UEaCJaVFw5T/LT+aerodynamics professor+RIMYKYZTq+fBRg40UPVp7I [file] 4hVAGtOAZru/6jHa4/LDjYqQ8SkfuI2KvPLc+m/wyyGN+S/roberto carlos/G8bN96RfWjSadEbJhiXrc169G03uv [file] Z17WtlGbQXI9q4v8Ti+La4CmOB9A1Bea2544q3l06L e/rPwStxjhym7dwj6X9opSGQJJaX5V+aUvsMzJ3g255eUzqovVx/wH6Un+ktyhYH51CnGieBux2Ll8VA JO8wLAa7BTqMDLHAqTcG+XEO95yPRPRJV1xb1ggGtm1vEc3CZhapjq3RG2NlhB4YnloBB+mjRcZXcNdV Y8anGdFDBauTR/u70oaY3LWvFkyLLlB6rDOgRePXMa 599x2b9VXf8R433OUc6sWA5BgEi2UqjP6bDoDhazmL7o0n4ZbFbODFXhM9B+2ZOWyiZkTqYYdKJF87PS 2+OXQMsl2q5G8oUOeZW/KDdqVB5tW2Nn8/Bl7/HhRKN++tcl+cT6O+hO4J7GCQaP/cf4W74z4pnjpwVC OYpYQao0CXGn3KTW8W9IhWkKE+NUTrXGu2zJBTx21t yQGh4LbAZzZJ47ZsD4vELD0De6gKq3MP/e8uBtdA2S0522yZ2D6o7JFT+nHqIZuNenwSzXLn0vC3oJit FDOACtaQKrI3zXgD5yhnrllc0TcndF03tUAs3zm70fw32zWKSrOEyTDQ+HCOrUwuxZu+Nxq5uoEi5KnL NtvvJ2O3Muabk9F3tLwiU0h/a8e+7hPoWUjeJZa70h 0WWtxXW7ziyMjTZFyYmFdSVG2rRiZYynJMmC9u49XgvIHXwPny6JaRmjgseyON5UamKAvW/5F5ONjCZN Upper sorbian/qk/5NfgkqdDFsduyfjDi24aeIwCs2aRzKoQWnwnLitMVZK+ps4utfv9oHCjip63SbFFAMQ3wnO0Vg [file] xO91oAy/4eM5be/Threat Analyst+GJaxjNKV5/7cZvqhNs7hXCKF [file] pUnEhDs5w0ALOFR54u0+caustic room attendant+ZBvpisto6b7QELvwFC [file] ANN MARIE+y+ZJmmiu8czvFKJUzTvqBzbOft/EOCTd+fhZBOCrk3/zslZOIBUJ43+3lKVgkPEfNSXQlhHy8sXq [file] Kbeo9tAIoCqKtdDDp5e6y0yfznxybSRoxySwL29/breana pw6nURdzZk9SUAMCI7PWt6WL2rhIlDwm4JjECGEGRjHRLWDy/niqpd2Qzxiw7OOsX0Z8ZmF2WaW6ef0A FzBgIvFgftWi05b/B33VfXwjs16oqV9sRhCVtpd6XU1L9Nuy2aETiksAcN33I8gOlnIO2uD6CaJOKZOy yIvxGbedv1DDF960VkQFMjSz8/RpogrKdj1c3MqOsw nfr40r3TQp7kKhOMJ4I104Tn7HLGTQ4E8wb612OXaE/zkk60vf0QjooPvLtHQAL6mODFC6nOWBbtqytB Cno/5Bj5iIUGbf++bLmB0o2hZA+HJPEIphN6SGm5aKfVU0tIvR31jsmufuPZ0uwEj6cJZP8w6bBdhnOn ponFZWf3jDauwNMT4UUXBcDsqVe4ioazB7eTIMs8fi cjnWQX8eCvwk6ySVyAJb7N3gw706n955VCTMLHf2KUkpLRlNS5GqbXc7f2wdKQ10z0457TZgfrHx1IXL U8j9G3YeEomjhdGiFLurvg9xRz6HPrWr+J4Bou0VMsRryCAhsJ808Qbk2RWcBoGaQolKLni+9o9n3tse UH926R4yzOx8rx9y5ViHmBgCAmZsuF7RZ8NqEoVl9p fjcbmVFt66LjpzAo8F8swuvj8mc6jMNOwDDEb573B5SGCghFjSrMOVn3Ezz0vIswM8aTdMQhiup4lYep g+zipper ironer/XkIu9zOOW2LlDpjR1vL1rjx/7jJFwZxc028YNew2lcBw32lUwlXxDcDWFJcbCc3VTomOknp+9W [file] o9KT0KCcJtc7DRrw9xhF9kuV1WxIwcyopfLvbLO9FVzrPjskkHllSw0urpmrf3Sba/Na8HvgAWfyI+Threat Analyst OmHvXlJ90VeP9qv+Q19gJaDfqVQmI0UckNRvBFeE55u39N8i2GGo0DF9Q2Vf8IG6zY62aqwFU7aCDBX7 0WJMeg2rN8d5Xy4306RKeaXEyXy9U0sOz9R2pdZ55k M2o0UB8N8+d7/Wn+ALYSE/kkdOpdf1f7m0aT62F74RKp2hA/1N6OeTF1wv9sLOsUPVWcHpHxYMGH0DilryB [file] xltkEWP0s/+bench assembler battery+NfrkcIfIYJaHhDPN1hFkUAgJ9Ba [file] missNNe/wZU/NATALIE+2ezRE7XLqjllQMrSN6OzK4tNGV 7zWUhRKXVM7s3/C7i8rX7mOYAMzC+Nm8a9JH8UcG3sUZVY8tAWGDo11db8YJULfQEyGuTTDm0vIgi7Uq +kWIdL3Ag+u8lh8JUQxnj4vHOySjRatRrUWj69jE513GC2isnobRfRndnnI14ztGJiDCfUEUQmAq2qwR c35BiZ1qIHUHy8OkcMgyDTVPKACWoFetMdgZ9GjajR JXGdPARz793Fxy+hKUw0y2Nm5p0V7ksw7v+yqoWqurTwY7tIEBa0WL+gkBB4gFQQhI/xnjgQj9FonOZT 3pt8KXNdf+fbWvn4k2sgCItUxBSrB7gBPZmQahH+mcK2I0fm/EKJYCbThrISU89iVgkE13kwACBB327e 6vS0cjpZiK61mQMHJy+jR5K+0PUd51WxGpy79ZclA3 7IAEBeNZYxIKITIm6MAiksKv8rLqPlewdH4oex27mQIVCDzg5bkmI8T+CnMdjN7Hp8aW6dx+p6lA2x5q k9nlxKBSMopRQ2Q2pYlS57RqmWwiS3Eu73B/6j0iKPu+uvcYtMu/TjwKcnN4xUQAzYvOKVe43rXNYais z3DuFCucud2fmeCZaWu8gb6KnSakv9hnJWFuwq9ewv XxXek/JQV9PcJcnF4YoxqAG5P9prmbDgODMWgNr9iPHQhi8+oelYf1B0UdWRReZn5SKrnblicsh3nmBd F5Gr/2uoACHp3/i78ip2cYBxHW0qhhS+MP6y9nRQGNHSk66ypZ3EAwcRiSEtOrhsH4e1Aol8KCl3jqlL tCzkXo6bXtRmh6HUyWb77n5VOHOdrSCMgriUOG6VY5 k5MLWRMn/VujL4Yzwl1O2MjTopP6eVEr9riqGt2PMMmq0yplaNn8YIQxlj5ICEwGvQq0jJm5LTiruAGN oVtAdY2aa4ji6cwiZGtRovLoV7R/c8kUyleuf0GS65/vTq6BnKlIYKO6ZyFNtmSs6eI/olJ5q1pKwTMZ IqOu1RbN6UpUtl1EMA0Mx6zpU4hj8VPL5argMML/Threat Analyst [file] cheese specialist/I/izXnG7HwtfyKfHbSLaY6J7bdPadgY5l3vYacAKFVeg6KxF6Z7BpFSj70a7hUB9JxYFv7nM5w422 ZYx5gaYyiziDEuIrf6kzJJ5xgAGhhrAN/Dj1FkJhWH e9/DpdZgVds5SRCUjwsgrhzTBSA0pa3NcYHyXnNu8bjrzpTVcamNVlouFLYkxdpuXzSkN/kpOuA6kMQy k/UsEvu7rvMrm2Wrv4xcb4udWflm7ihQcbS/PYb7ChUmT/dvrkCRPVNNDP9uJ901aDpq4U72s+eLhHl1 PdQ7Mkjzk3miPEUz6TlTVhfRAlTfaLc2g/3JJ/R/D7 nzHEBqS2skahm42Njuwo4tv0hlu50+xP0S4Vkdaf4ipYGfR0f30G2uUXvG0hC+mByrNN+KBczQlsgpEz B9zxLfLy4j4/r0K1rbDVoUHxeoxDWl7bcECmxMljI9geSPycsP74XcbMliA69Ti32jLWzDzrmCoUXVmR eJ/vJcdCgnmY7l5Zax/2/RUrruGeO+vreiimwx90hE etvx12ElUrYYFpYpJBLF1IM2E2pnTNa1HZZpuyX4AUFjMQ3lX/tNCq9eobf23ddeQNsILlpFSLRliQ/D odj2n4kRMGHzyWFB28D4kTE34EBbdD+BuNV5/K7m7Et5CH5u2tPsjTI+LGvrRDzpVB46C4GdiIXh+Patricia [file] Mt8dSTVaLj0xLDEQL+7npeUMUIAT7iMEZEVAKnuoAG 1ZyIt3IB/ETF+ekdPHPoZC3e2+ac7KKGdtFvw8CXafhRo4xE4D3xPm9p52utk6N177w9gElLdx7SPAh6 mo4Ynxsj1U6Lz0S7JYzk+FDVkuVKCxMC04eL0eVC6U733ycVo+JGu8LwRijvbx1p3FRv4m5z5hR1JnJP HLZo9zR+/PrgRaPFEK2kc8z1RgnxEW+2O9lhbisUEC 7+/ObDxHkCiMkmrq9XFW3l7rtMJbgVFg7O7H0U6OFvzOVKNkEcVSSuaKBAzx3NWgwXmxG1p5KrGgbTDa fkkq4z+3HrGGjzrOgY+C4rIy7kP7el7VJ0LWyjWQo2PoOClst65XicQ4F+0iqpAxfU09VWhkfpK2Z0UT sample clerk/0HUyy2mmjDtK1WGS+GTfjATaiME7nfuCppLuGd [file] +90MNlfg+coZ03ajaqX+rWIBFrth/AIRCRAFT MAINTENANCE TECHNICIAN+S0hZLFl8Hw [file] mill operator [file] nY6ZCrKoaN0bTkoNLcRb/RTe3Gy/vp of customer experience strategy+pWvEKqF3qP7 [file] QyLHevv1N2dRDwxq9GCOGl63j9tcaxC9BoI5XkIRfR4AFTnCW9N6AxXr6BlT6hmO82QySW1YIs5/césar [file] PqOjMz4WbDs+yOMEZ0JveSbSSdI+magazine repairer/UZA0DyGuK2 [file] 96JIa7AyG+Threat Analyst+MS+uZdgQAYfh51RJHrKsRJh1Y6+aI [file] SUCm3K2w4CYT4lj4NuGKOtMHlnsnIbGrpGOElcdRCzxQxlDPRZKsRnJsG2JKlILtRrEK7G ID Date Data Source [id number] 11/16/2020 02:00:00 PM EST [facility] ([facility] Name Value Range Interpretation Code Description Data Donna rce(s) Supporting Document(s) [facility] This nucleic acid amplification test was developed and its performance characteristics determined by [employer]. Nucleic acid amplification tests include PCR and TMA. This test has not been FDA cleared or approved. This test has been authorized by FDA under an Emergency Use Authorization (EUA). This test is only authorized for the duration of time the declaration that circumstances exist justifying the authorization of the emergency use of in vitro diagnostic tests for detection of SARS-CoV-2 virus and/or diagnosis of COVID-19 infection under section 564(b)(1) of the Act, 21 U.S.C. 360bbb-3 (b) (1), unless the authorization is terminated or revoked sooner. When diagnostic testing is negative, the possibility of a false negative result should be considered in the context of a patient's recent exposures and the presence of clinical signs and symptoms consistent with COVID-19. An individual without symptoms of COVID-19 and who is not shedding SARS-CoV-2 virus would expect to have a negative (not detected) result in this assay. Performed at: [email or web address] [address] [place], [place] [id number] [place] Clerk: Amita Flores PhD, Phone: [phone] ID Date Data Source [id number] 11/16/2020 02:00:00 PM EST [facility] Name Value Range Interpretation Code Description Data Donna rce(s) Supporting Document(s) [facility] 2 [facility] This lab was ordered by [facility] nd reported by [facility]. ID Date Data Source [id number] 11/17/2020 04:10:00 PM EST [facility] Name Value Range Interpretation Code Description Data Donna rce(s) Supporting Document(s) SARS COV2 [facility] Detected Not Detected [facility] This nucleic acid amplification test was developed and itsperformance characteristics determined by [facility]. Nucleic acid amplification tests include PCRand TMA. This test has not been FDA cleared or approved.This test has been authorized by FDA under an Emergency UseAuthorization (EUA). This test is only authorized forthe duration of time the declaration that circumstancesexist justifying the authorization of the emergency use ofin vitro diagnostic tests for detection of SARS-CoV-2 virusand/or diagnosis of COVID-19 infection under qebbrew267(b)(1) of the Act, 21 U.S.C. 360bbb-3(b) (1), unless theauthorization is terminated or revoked sooner.When diagnostic testing is negative, the possibility of afalse negative result should be considered in the contextof a patient's recent exposures and the presence ofclinical signs and symptoms consistent with COVID-19. Anindividual without symptoms of COVID-19 and who is notshedding SARS-CoV-2 virus would expect to have a negative(not detected) result in this assay.Performed at: [email or web address] [place], [place] [id number] Director: Amita Shoshana Flores PhD, Phone: [phone] ID Date Data Source [id number] 11/17/2020 04:05:00 PM EST [facility] Name Value Range Interpretation Code Description Data Donna rce(s) Supporting Document(s) SARS-CoV-2, JUANA Detected Not Detected Abnormal (applies to non- numeric results) [facility] This nucleic acid amplification test was developed and its performancecharacteristics determined by [employer]. Nucleic acidamplification tests include PCR and TMA. This test has not been FDAcleared or approved. This test has been authorized by FDA under anEmergency Use Authorization (EUA). This test is only authorized forthe duration of time the declaration that circumstances existjustifying the authorization of the emergency use of in vitrodiagnostic tests for detection of SARS-CoV-2 virus and/or diagnosisof COVID-19 infection under section 564(b)(1) of the Act, 21 U.S.C.360bbb-3(b) (1), unless the authorization is terminated or revokedsooner.When diagnostic testing is negative, the possibility of a falsenegative result should be considered in the context of a patient'srecent exposures and the presence of clinical signs and symptomsconsistent with COVID- 19. An individual without symptoms of COVID-19and who is not shedding SARS-CoV-2 virus would expect to have anegative (not detected) result in this assay. ID Date Data Source [id number] 11/10/2020 12:00:00 AM EST [facility] Patient Name:NIEVES [id number] [facility] [address] Date of : 1960te 301 [facility] [address]#: [phone]: [phone] EXAM: MAMMO SCREENING WITH CADCLINICAL INFORMATION: Screening.Based on the personal and family history information your patient suppliedat the time of imaging, her lifetime risk of breast cancer estimated by theTyrer-Cuzick model is 18.8%. Given that this patient has less than 20% TCrisk score, no further medical management is currently recommended at thistime.The patient has previously received genetic testing.Digital screening (2D) mammography was performed bilaterally in the CC andMLO projections. Additionally, breast tomosynthesis (3D mammography) wasperformed bilaterally in the CC and MLO projections. Today's exam wascompared to the prior exam(s).By history, the patient has no complaints of a palpable breast abnormalityor other significant breast complaints.The patient states last clinical breast exam was in June of 2020.The breasts are unchanged in size and shape. There are no shruti-soft tissuedensities or spiculated masses. There is no internal architecturaldistortion. There are no suspicious shruti-calcific clusters. Skinthickening or nipple retraction is not present.The Volpara volumetric breast density category is B, there are scatteredareas of fibroglandular density.IMPRESSION:BI-RADS Category 1 - Negative Mammogram. Stable mammogram. There is noevidence of malignant alteration of the breasts. Followup examinationrecommended in one year.This mammogram was read with the assistance of Jamila Puckett [employer], an FDAapproved computer aided detection system for mammography.Negative x-ray reports should not delay surgical consultation if a dominantor clinically suspicious mass is present.Not all breast cancers can be identified by mammography. Therefore, werecommend that you continue to perform regular breast self-examination andphysical examination and then promptly contact your physician of anyconcerns or changes.Adenosis and dense breasts may obscure an underlying neoplasm.JED Hyman/Delmer you for referring ERIC PAYTON to our office. Electronically Signed - PINO BARRAGAN DO 11/16/20 16:41 Name Value Range Interpretation Code Description Data Donna rce(s) Supporting Document(s) ID Date Data Source [id number] 10/20/2020 10:49:00 AM EST [facility] ([facility]) Name Value Range Interpretation Code Description Data Donna rce(s) Supporting Document(s) Urine Color Laboratory test result MEDEN T ([facility]) Urine Appearance Laboratory test result [facility] ([facility]) Urine PH 6.0 units 5.0-9.0 [facility]) Specific gravity of Urine 1.005 1.005-1.030 ME DENT ([facility]) Urine Leukocytes Laboratory test result [facility] ([facility]) Urine Blood Laboratory test result Abnormal (applies to non-numeric results) [facility] ([facility]) Glucose [Presence] in Urine Laboratory test result [facility] ([facility]) Urine Protein Laboratory test result 0-0 MED ENT ([facility]) Urine Nitrite Laboratory test result [facility] ([facility]) Urine Ketone Laboratory test result MEDE NT ([facility]) Urine Urobilinogen 0.2 mg/dL 0.2-1.0 [facility] ([facility]) Bilirubin.total [Mass/volume] in Serum or Plasma Laboratory test resu lt [facility] ([facility]) ID Date Data Source [id number] 10/11/2020 03:42:00 AM EST [facility] Patient: ERIC PAYTON Observation Report - Physicians/Mid Levels [facility].VisitID: [id number] [place] [address] [phone], FRegistration Date/Time: 10/10/2020 23:06 Weight:83.4 kg (S). Height/Length:63 inches (S). BMI:32.6 FAMILY HISTORYNo significant family medical history. (Electronically signed by Zulay Ace M.D. 10/11/2020 03:14) Name Value Range Interpretation Code Description Data Donna rce(s) Supporting Document(s) ID Date Data Source [id number] 10/10/2020 11:10:00 PM EST [facility] ([facility]) Name Value Range Interpretation Code Description Data Donna rce(s) Supporting Document(s) Urbc Laboratory test result 0-3 [facility] ([facility]) Uwbc Laboratory test result 0-5 [facility] ([facility]) Ub Laboratory test result [facility] ([facility]) ID Date Data Source [id number] 10/10/2020 11:10:00 PM EST [facility] ([facility]) Name Value Range Interpretation Code Description Data Donna rce(s) Supporting Document(s) Ucol Laboratory test result [facility] ([facility]) Uapp Laboratory test result [facility] ([facility]) Ugl Laboratory test result [facility] ([facility]) Ubil Laboratory test result [facility] ([facility]) Uket Laboratory test result [facility] ([facility]) Sgu 1.015 1.001-1.035 [facility] ([facility]) Liam 7.5 5.0-9.0 [facility] Ubl Laboratory test result [facility] ([facility]) Upro Laboratory test result [facility] ([facility]) Unit Laboratory test result [facility] ([facility]) Uuro Laboratory test result 0-1 [facility] ([facility]) Ule Laboratory test result [facility] ([facility]) ID Date Data Source [id number] 10/13/2020 01:16:00 PM EST [facility] Name Value Range Interpretation Code Description Data Donna rce(s) Supporting Document(s) ORGANISM [facility] COLONY COUNT N [facility] ID Date Data Source [id number] 10/10/2020 11:24:00 PM EST [facility] TSYSORDER [id number] Name Value Range Interpretation Code Description Data Donna rce(s) Supporting Document(s) URINE RBC 20-25 /hpf 0-3 [facility] URINE WBC TNTC /hpf 0-5 H [facility] URINE BACTERIA 3+ NONE SEEN [facility] ID Date Data Source [id number] 10/10/2020 11:21:00 PM EST [facility] ital TSYSORDER [id number] Name Value Range Interpretation Code Description Data Donna rce(s) Supporting Document(s) URINE COLOR. RED [facility] URINE APPEARANCE CLOUDY [facility] URINE GLUCOSE (UA) NEGATIVE mg/dL NEGATIVE [facility] URINE BILIRUBIN NEGATIVE NEGATIVE [facility] URINE KETONE NEGATIVE mg/dL NE[facility]IVE [facility] SPE[facility]IFIC GRAVITY,URINE 1.015 1.001-1.035 [facility] URINE BLOOD 3+(LARGE) NEGATIVE [facility] PH,URINE 7.5 5.0-9.0 [facility] URINE PROTEIN 2+(100) mg/dL [facility] UROBILINOGEN NORMAL(0.2-1) mg/dL [facility] NITRATE NEGATIVE NEGATIVE [facility] URINE LEUKOCYTE ESTERASE 1+(SMALL) NEGATIVE [facility] Procedure Social History Code Duration Value Status Description Data Source(s ) Smoking 02/11/2021 12:00:00 AM EDT Patient is a non-smoker com pleted Patient is a non-smoker [facility] ([facility] [place]) Vital Signs ID Date Data Source [id number] Name Value Range Interpretation Code Description Data Source(s) Heart rate 88 /min 88 /min [facility] Body height 63 [in_i] 63 [in_i] [facility] ([facility]) 5'3" Body weight 185.00 [lb_av] 185.00 [lb_av] [facility] ([facility]) Oxygen saturation in Arterial blood by Pulse oximetry 96 % 96 % [facility] ([facility]) Body mass index (BMI) [Ratio] 32.8 kg/m2 32.8 k g/m2 [facility] ([facility]) Systolic blood pressure 142 mm[Hg] 142 mm[Hg] [facility] Diastolic blood pressure 90 mm[Hg] 90 mm[Hg] [facility] ([facility]) Heart rate 72 /min 72 /min [facility] ([facility]) Body weight 184.00 [lb_av] 184.00 [lb_av] [facility] Body mass index (BMI) [Ratio] 32.6 kg/m2 32.6 k g/m2 [facility] ([facility]) Body height 63 [in_i] 63 [in_i] [facility] ([facility]) 5'3" Diastolic blood pressure 86 mm[Hg] 86 mm[Hg] [facility] ([facility]) Body weight 184.00 [lb_av] 184.00 [lb_av] [facility] T ([facility]) Oxygen saturation in Arterial blood by Pulse oximetry 96 % 96 % [facility] ([facility]) Body mass index (BMI) [Ratio] 32.6 kg/m2 32.6 k g/m2 [facility] ([facility]) Heart rate 67 /min 67 /min [facility] ([facility]) Body height 63 [in_i] 63 [in_i] [facility] ([facility]) 5'3" Systolic blood pressure 128 mm[Hg] 128 mm[Hg] M EDENT ([facility]) Systolic blood pressure 144 mm[Hg] 144 mm[Hg] [facility] Diastolic blood pressure 82 mm[Hg] 82 mm[Hg] [facility] ([facility]) Heart rate 84 /min 84 /min [facility] ([facility]) Body height 63 [in_i] 63 [in_i] [facility] ([facility]) 5'3" Body weight 188.00 [lb_av] 188.00 [lb_av] [facility] T ([facility]) Oxygen saturation in Arterial blood by Pulse oximetry 98 % 98 % [facility] ([facility]) Body mass index (BMI) [Ratio] 33.3 kg/m2 33.3 k g/m2 [facility] ([facility]) Body temperature 97.5 [degF] 97.5 [degF] [facility] ([facility] Body height 63 [in_i] 63 [in_i] [facility] ([facility] ) 5'3" Body weight 181.12 [lb_av] 181.12 [lb_av] [facility] T ([facility] ) Body mass index (BMI) [Ratio] 32.1 kg/m2 32.1 k g/m2 [facility] ([facility] ) Body height 63 [in_i] 63 [in_i] [facility] ([facility]) 5'3" Body weight 180.00 [lb_av] 180.00 [lb_av] [facility] T ([facility] [place]) Body weight 81.648 kg 81.648 kg [facility] ([facility] [place] Body mass index (BMI) [Ratio] 31.9 kg/m2 31.9 k g/m2 [facility] ([facility] [place]) Systolic blood pressure 144 mm[Hg] 144 mm[Hg] M EDENT ([facility] [place]) Diastolic blood pressure 96 mm[Hg] 96 mm[Hg] [facility] ([facility] [place]) Heart rate 81 /min 81 /min [facility] ([facility] [place] Body weight 184.00 [lb_av] 184.00 [lb_av] MED[facility] T ([facility]) Diastolic blood pressure 92 mm[Hg] 92 mm[Hg] MEDENT ([facility]) Heart rate 88 /min 88 /min MEDENT ([facility]) Body height 63 [in_i] 63 [in_i] MEDENT ([facility]) 5'3" Systolic blood pressure 150 mm[Hg] 150 mm[Hg] M EDENT ([facility]) Oxygen saturation in Arterial blood by Pulse oximetry 95 % 95 % MEDENT ([facility]) Body mass index (BMI) [Ratio] 32.6 kg/m2 32.6 k g/m2 MEDENT ([facility]) Body weight 181.00 [lb_av] 181.00 [lb_av] MEDEN T ([facility]) Body mass index (BMI) [Ratio] 32.1 kg/m2 32.1 k g/m2 MEDENT ([facility]) Systolic blood pressure 128 mm[Hg] 128 mm[Hg] M EDENT ([facility]) Diastolic blood pressure 76 mm[Hg] 76 mm[Hg] MEDENT ([facility]) Body height 63 [in_i] 63 [in_i] MEDENT ([facility]) 5'3" Body height 67 [in_i] 67 [in_i] eCW1 ([facility]) Heart rate 95 /min 95 /min eCW1 ([facility]) Respiratory rate 18 /min 18 /min eCW1 ([facility]) Oxygen saturation in Arterial blood by Pulse oximetry 97 % 97 % eCW1 ([facility]) Systolic blood pressure 130 mm[Hg] 130 mm[Hg] M EDENT ([facility]) Diastolic blood pressure 78 mm[Hg] 78 mm[Hg] MEDENT ([facility]) Body height 63 [in_i] 63 [in_i] MEDENT ([facility]) 5'3" Body weight 184.00 [lb_av] 184.00 [lb_av] MEDEN T ([facility]) Body mass index (BMI) [Ratio] 32.6 kg/m2 32.6 k g/m2 MEDJOSE ([facility]) Patient Treatment Plan of Care Planned Activity Planned Date Details Description Data Source (s) Azelastine-Fluticasone 137-50 MCG/ACT 11/16/2020 12:00:00 AM EST eCW1 ([facility])
[2021-09-13] MEDS ORDERED: ACETYLCHOLINE OPHTH SOLN 1% 2ML (MIOCHOL-E) As Ordered ONE (08:01)
[2021-09-13] MEDS ORDERED: fentaNYL 100 MCG/2 ML INJECTION (J3010) As Ordered ONE (08:34)
[2021-09-13] MEDS ORDERED: MIDAZOLAM INJ 2MG/2ML VIAL (J2250 PER 1MG) As Ordered ONE (08:34)
[2021-09-13] MEDS ORDERED: VISCOAT 40-30MG/ML 0.5ML SYRINGE As Ordered ONE (08:37)
[2021-09-13 09:30] VITALS: BP 140/76
--- NOTE | 2021-09-16 12:57 | RO ---
DATE OF SURGERY: 09/13/2021 PREOPERATIVE DIAGNOSIS: Senile cataract right eye. POSTOPERATIVE DIAGNOSIS: Senile cataract right eye. PROCEDURE: Phacoemulsification with posterior chamber intraocular lens implant right eye (toric). SURGEON: Elan Scott Jr., COMPRESS MACHINE OPERATOR: ANESTHESIA: IV sedation. DESCRIPTION OF PROCEDURE: The patient was brought into the operating room and given monitored anesthesia by the department of anesthesia by IV route. The patient was then given a standard prep by using betadine solution. One drop of tetracaine was placed in the eye prior to the prep. The patient was then draped in the usual manner. Lid speculum was placed in the eye. Lockett corneal axis ring was held over the cornea and marked out astigmatism with axis of 80 degrees; this was done with the aid of baseline markings placed at 180 degrees with the marking pencil with the patient sitting up in the holding area. The eye was grasped with 0.12 forceps for better exposure of the cornea. A 15- degree stab blade was made at 10-oclock position. 0.3 mL of 1% lidocaine in a syringe attached to a cannula was inserted into the anterior chamber through the port site. Viscoelastic was inserted into the anterior chamber through the port site. A 2.75 mm clear cornea keratome blade was then used to make a clear corneal wound at 9-oclock position. A cystotome was used to start a continuous tear capsulorrhexis, which was completed with Utrata forceps. Balanced salt solution (BSS) in a syringe attached to a cannula was then used to hydrodissect the lens nucleus. Phacoemulsification was then used to remove the lens nucleus using a divide and conquer-type technique. After this was completed, irrigation and aspiration apparatus was brought into the anterior chamber and the remaining cortical material was removed. ProVisc was inserted into the capsular bag. Then it was decided to use an Wilder AcrySof toric one-piece foldable lens. It was then dialed into place using a Parth pusher. The axis markings were aligned with the axis markings at 80 degrees on the cornea. Once this was seen, the case continued. Once the lens was in place, irrigation and aspiration was reinserted into the anterior chamber and the remaining ProVisc was removed. BSS was inserted through the port site, and then the port site was hydrated. The wound was checked. There was no need for sutures at this time. The patient then had the lid speculum removed. The shield was placed over the eye, and the patient was brought back to ambulatory surgery in stable condition. The patient tolerated the procedure well. Phacoemulsification time was 3.71 seconds. Besivance drops were placed in the eye in ambulatory surgery. MIKE
== END 2021-09-13 09:45 | disposition home or self-care (01) ==
LOC: M SDC 07:00
PROVIDERS: ATTEND Ophthalmology
DX: H25.11 Age-related nuclear cataract, right eye (principal); I10 Essential (primary) hypertension; K21.9 Gastro-esophageal reflux disease without esophagitis; Z79.899 Other long term (current) drug therapy; Z88.2 Allergy status to sulfonamides
CPT/HCPCS: 66984; 92015; J2250; J3010

== ENCOUNTER → 2021-11-15 | Outpatient (CLI) | payer OTHER ==
[~2021-11-15] MED LIST changes: -CYCLOPENTOLATE 1% OPHTH SOLN 2 ML BTL OD SCH; -DUOVISC (0.50ML VISCOAT/0.85ML PROVISC) OPHTH KIT As Ordered ONE; -FLURBIPROFEN 0.03% OPHTH SOLN 2.5 ML OD SCH; -LIDOCAINE 1% SDV 5ML VIAL As Ordered ONE; -LR 1,000 ML IV SCH; -OMEP10CA78 PO; +OMEP1CAP71 PO; -PHENYLEPHRINE 2.5% OPHTH SOL 2ML OD SCH; -TETRACAINE 0.5% OPHTH SOLN 4ML OD SCH
== END ==
LOC: M WHC 13:13
PROVIDERS: ATTEND Nurse Practitioner Adult Health
DX: Z12.31 Encounter for screening mammogram for malignant neoplasm of breast (principal)

== ENCOUNTER → 2022-04-06 | Outpatient (CLI) | payer OTHER | LOC: M EKG 10:03 | PROVIDERS: ATTEND Nurse Practitioner Adult Health | DX: R00.1 Bradycardia, unspecified (principal) ==

== ENCOUNTER → 2022-11-17 | Outpatient (CLI) | payer OTHER | LOC: M WHC 12:19 | PROVIDERS: ATTEND Nurse Practitioner Adult Health | DX: Z12.31 Encounter for screening mammogram for malignant neoplasm of breast (principal) ==

== ENCOUNTER → 2023-02-17 | Outpatient (REF) | payer OTHER ==
[2023-02-17 12:25] LABS: APPEARANCE, URINE CLEAR (CLEAR); BACTERIA, URINE AUTO NEGATIVE (NEGATIVE); BILIRUBIN, URINE AUTO NEGATIVE (NEGATIVE); BLOOD, URINE BLOOD 1+ (NEGATIVE); COLOR, URINE STRAW (YELLOW); GLUCOSE, URINE (UA) AUTO NEGATIVE (NEGATIVE); KETONE, URINE AUTO NEGATIVE (NEGATIVE); LEUKOCYTE ESTERASE, URINE AUTO NEGATIVE (NEGATIVE); NITRITE, URINE AUTO NEGATIVE (NEGATIVE); PROTEIN, URINE AUTO NEGATIVE (NEGATIVE); RBC, URINE AUTO 0 /HPF (0-3); SPECIFIC GRAVITY URINE AUTO 1.005 (1.002-1.035); SQUAMOUS EPITHELIAL CELL UR AU 0 /HPF (0-6); UROBILINOGEN, URINE AUTO 0.2 mg/dL (0.0-2.0); WBC, URINE AUTO 0 /HPF (0-3)
== END ==
LOC: M LAB REF 11:14
PROVIDERS: ATTEND Internal Medicine
DX: Z01.818 Encounter for other preprocedural examination (principal)

== ENCOUNTER → 2023-03-08 | Outpatient (REF) | payer OTHER | LOC: M LAB REF 16:34 | PROVIDERS: ATTEND Nurse Practitioner Adult Health | DX: K86.89 Other specified diseases of pancreas (principal); K75.81 Nonalcoholic steatohepatitis (NASH) ==

== ENCOUNTER → 2023-11-23 | Outpatient (CLI) | payer OTHER ==
[~2023-11-23] MED LIST changes: +CELE0.09 PO; -CELE1CAP9 PO
== END ==
LOC: M WHC 11:09
PROVIDERS: ATTEND Nurse Practitioner Adult Health
DX: Z12.31 Encounter for screening mammogram for malignant neoplasm of breast (principal)

== ENCOUNTER → 2023-12-12 | Outpatient (REF) | payer OTHER | LOC: M LAB REF 16:26 | PROVIDERS: ATTEND Nurse Practitioner Adult Health | DX: Z02.1 Encounter for pre-employment examination (principal) ==

== ENCOUNTER → 2024-05-07 | Outpatient (CLI) | payer OTHER | LOC: M PLAIMG 10:50 | PROVIDERS: ATTEND Nurse Practitioner Adult Health | DX: I47.10 Supraventricular tachycardia, unspecified (principal) ==

== ENCOUNTER → 2024-10-07 | Outpatient (REF) | payer OTHER ==
[2024-10-07 18:02] LABS: C REACTIVE PROTEIN QUANTITATIV 0.6 MG/DL (<1.0)
[2024-10-07 18:04] LABS: RHEUMATOID FACTOR QUANT 4.4 IU/ML (<14)
[2024-10-07 18:06] LABS: URIC ACID 6.7 MG/DL (3.1-7.8)
[2024-10-10 12:58] LABS: CYCLIC CITRULLINATED PEPTIDE < 16 UNITS (<20)
[2024-10-10 14:17] LABS: ANA SCREEN, IFA POSITIVE (NEGATIVE)
[2024-10-10 14:23] LABS: ANA PATTERN Nuclear, Speckled (NEGATIVE); ANA TITER 1:40 titer (<1:40)
[2024-10-11 12:54] LABS: LYME TOTAL ANTIBODY CIA <= 0.90 Index (<=0.90)
== END ==
LOC: M LAB REF 16:26
PROVIDERS: ATTEND Nurse Practitioner Adult Health
DX: M25.561 Pain in right knee (principal)

== ENCOUNTER → 2024-11-25 | Outpatient (CLI) | payer OTHER | LOC: M WHC 12:06 | PROVIDERS: ATTEND Nurse Practitioner Adult Health | DX: Z12.31 Encounter for screening mammogram for malignant neoplasm of breast (principal); R92.313 Mammographic fatty tissue density, bilateral breasts ==

== ENCOUNTER 2025-01-19 14:11 | Emergency (ER) | payer OTHER ==
[~2025-01-19] VITALS: Ht 160 cm; Wt 86.8 kg
[2025-01-19] MEDS ORDERED: ELIQ5TAB (14:27)
[2025-01-19 16:09] VITALS: BP 147/71; TEMP 98.6; O2SAT 98
== END 2025-01-19 16:09 | disposition home or self-care (01) ==
LOC: M ED 14:11
DX: S82.831A Other fracture of upper and lower end of right fibula, initial encounter for closed fracture (principal); S82.54XA Nondisplaced fracture of medial malleolus of right tibia, initial encounter for closed fracture; W00.0XXA Fall on same level due to ice and snow, initial encounter; X50.0XXA Overexertion from strenuous movement or load, initial encounter; M25.461 Effusion, right knee; K21.9 Gastro-esophageal reflux disease without esophagitis; I10 Essential (primary) hypertension; Y92.009 Unspecified place in unspecified non-institutional (private) residence as the place of occurrence of the external cause; Y93.89 Activity, other specified; Y99.9 Unspecified external cause status; Z86.79 Personal history of other diseases of the circulatory system; Z88.2 Allergy status to sulfonamides; Z79.01 Long term (current) use of anticoagulants; Z79.899 Other long term (current) drug therapy

== ENCOUNTER → 2025-08-27 | Outpatient (REF) | payer OTHER ==
[~2025-08-27] MED LIST changes: +ELIQ5TAB
== END ==
LOC: M LAB REF 12:37
PROVIDERS: ATTEND Nurse Practitioner Adult Health
DX: M25.861 Other specified joint disorders, right knee (principal)

== ENCOUNTER → 2025-10-17 | Outpatient (REF) | payer OTHER | LOC: M LAB REF 19:32 | PROVIDERS: ATTEND Physician Assistant | DX: R30.0 Dysuria (principal) ==